=== PATIENT | female | born 1995 | race Caucasian/White ===

== ENCOUNTER → 2018-09-15 10:43 | Outpatient (CLI) | payer OTHER, SELFPAY ==
[2018-09-15 14:20] LABS: Hemoglobin A1c 5.4 % (4.2-6.3)
[2018-09-15 14:48] LABS: Follicle Stimulating Hormone 2.6 mIU/mL; Free T3 3.2 pg/mL (2.18-3.98); Glucose 80 mg/dL (74-106); Luteinizing Hormone 3.1 mIU/mL; T4 Free Direct 0.82 ng/dL (0.76-1.46); Thyroid Stim Hormone (TSH) 1.37 uIU/mL (0.358-3.74)
== END ==
PROVIDERS: Visit Provider Obstetrics & Gynecology
DX: N92.6 Irregular menstruation, unspecified (principal)
CPT/HCPCS: 36415; 82947; 83001; 83002; 83036; 84146; 84439; 84443; 84481

== ENCOUNTER → 2019-08-13 13:20 | Outpatient (CLI) | payer OTHER, SELFPAY ==
[2019-08-13 13:25] LABS: Mucous, Urine 0 SEEN /hpf (<or=2+); Red Blood Cells-Urine 0 SEEN /hpf (0-5); White Blood Cells 0 SEEN /hpf (0-5)
[2019-08-13 14:25] LABS: Color, Urine Yellow (Yellow); Glucose, Dipstick Normal (Normal); Ketone-Dipstick Negative (Negative); Leukocyte Esterase-Dipstick 25 /ul (Negative); Nitrite-Dipstick Negative (Negative); Occult Blood-Urine Negative /ul (Negative); Protein-Dipstick 30 mg/dl (Negative); Urine Bilirubin Dipstick Negative (Negative); Urine Clarity Cloudy (Clear); Urine Urobilinogen Normal (Normal)
[2019-08-13 14:34] LABS: Squamous Epithelial Cells - UA 5-10 SEEN /hpf (5-10)
[2019-08-13 14:36] LABS: Amorphous Sediment 3+; Bacteria RARE /hpf (None Seen)
[2019-08-16 03:06] LABS: HSV 1 By PCR Negative (Negative)
[2019-08-16 10:01] LABS: HSV 2 By PCR Negative (Negative)
== END ==
PROVIDERS: Visit Provider Obstetrics & Gynecology
DX: N39.0 Urinary tract infection, site not specified (principal); N77.1 Vaginitis, vulvitis and vulvovaginitis in diseases classified elsewhere
CPT/HCPCS: 81001; 87086; 87088; 87529

== ENCOUNTER → 2019-09-09 10:45 | Outpatient (CLI) | payer OTHER, SELFPAY ==
--- NOTE | 2019-09-09 10:49 | RAD_ITS ---
EXAM DESCRIPTION: Hysterosalpingogram CLINICAL HISTORY: 24 years Female, infertility COMPARISON: None. TECHNIQUE: The uterus is catheterized by Dr. Rincon and contrast material was injected into the uterine cavity. 54 seconds of fluoroscopy was utilized including 33.91 mGy of dose and 5 fluoroscopic images. FINDINGS: The uterine cavity itself appeared to be normal and contrast material filled the right ovary duct and spill into the peritoneum indicating that the right oviduct is patent. There is total blockage of the left oviduct at the uterine cornua level. RAD/Salpingogram IMPRESSION: 1. There is total blockage of the left oviduct the level of the left uterine cornua. 2. The right oviduct is patent. Electronically Signed: Stuart Ko, at 16:04 EDT Tel , Service support ,
== END ==
PROVIDERS: Family Provider Physician Assistant; PCP Physician Assistant; Referring Provider Obstetrics & Gynecology; Visit Provider Obstetrics & Gynecology
DX: N97.9 Female infertility, unspecified (principal)
CPT/HCPCS: 58340; 74740; Q9967

== ENCOUNTER → 2019-12-20 15:10 | Outpatient (CLI) | payer OTHER, SELFPAY ==
[2019-12-20 16:53] LABS: hCG Titer Quant., Serum 1610 mIU/mL (1-3)
== END ==
PROVIDERS: Visit Provider Obstetrics & Gynecology
DX: N91.2 Amenorrhea, unspecified (principal)
CPT/HCPCS: 36415; 84702

== ENCOUNTER → 2019-12-22 15:01 | Outpatient (CLI) | payer OTHER, SELFPAY ==
[2019-12-22 16:33] LABS: hCG Titer Quant., Serum 3437 mIU/mL (1-3)
== END ==
PROVIDERS: Visit Provider Obstetrics & Gynecology
DX: N91.2 Amenorrhea, unspecified (principal)
CPT/HCPCS: 36415; 84702

== ENCOUNTER → 2020-01-12 | Outpatient (CLI) | payer OTHER, SELFPAY | END | disposition home or self-care (01) | PROVIDERS: Referring Provider Obstetrics & Gynecology; Visit Provider Obstetrics & Gynecology | DX: Z34.81 Encounter for supervision of other normal pregnancy, first trimester (principal); Z12.4 Encounter for screening for malignant neoplasm of cervix; Z11.3 Encounter for screening for infections with a predominantly sexual mode of transmission ==

== ENCOUNTER → 2020-02-09 15:54 | Outpatient (CLI) | payer OTHER, SELFPAY ==
[2020-02-09 18:08] LABS: Absolute Lymphocyte Count 2.17 X10^3/uL (0.83-4.51); Absolute Neutrophil Count 6.7 X10^3/uL (2.0-7.7); Basophil# 0.03 X10^3/uL; Basophil% 0.3 % (0-1); Eosinophil# 0.21 X10^3/uL; Eosinophils% 2.2 % (0-5); Hematocrit 35.8 % (37-47); Hemoglobin 11.7 g/dL (12.0-15.0); Lymphocyte # 2.17 X10^3/ul (4.0); Lymphocyte % 22.3 % (19-41); Mean Corp Hgb Conc 32.7 g/dL (32-36); Mean Corpuscular Hgb 28.5 pg (27.0-32.0); Mean Corpuscular Volume 87.1 fL (81-99); Mean Platelet Vol. 11.9 fl (6.2-12.0); Monocyte# 0.58 X10^3/uL; NRBC Flagged by Analyzer 0 % (0-5); Neutrophil % 68.8 % (47-70); Platelet Count 215 K/mm3 (150-450); RBC Distribution Width CV 13.2 % (11.6-14.6); RBC Distribution Width SD 41.4 fl (35.1-43.9); Red Blood Count 4.11 M/mm3 (4.2-5.4); White Blood Count 9.7 K/mm3 (4.4-11.0)
[2020-02-09 18:37] LABS: Thyroid Stim Hormone (TSH) 1.81 uIU/mL (0.358-3.74)
[2020-02-10 02:10] LABS: Prenatal RPR NONREACTIVE (NONREACTIVE)
[2020-02-10 10:49] LABS: HIV - WCH Non-Reactive (Nonreactive); Hepatitis B Surface Antigen Non-Reactive (Nonreactive); Hepatitis C Antibody Non-Reactive (Nonreactive); Rubella IgG > 500.0 IU/mL
[2020-02-12 08:07] LABS: Vitamin D,25 Hydroxy 30.2 ng/mL
== END ==
PROVIDERS: Visit Provider Obstetrics & Gynecology
DX: Z34.81 Encounter for supervision of other normal pregnancy, first trimester (principal)
CPT/HCPCS: 36415; 80307; 81002; 82306; 84443; 85025; 86703; 86762; 86803; 87340

== ENCOUNTER → 2020-03-08 | Outpatient (CLI) | payer OTHER, SELFPAY ==
[2020-03-08 18:39] LABS: Glucose Challenge Gest 1H 50g 102 mg/dL (70-140)
== END | disposition home or self-care (01) ==
PROVIDERS: Referring Provider Obstetrics & Gynecology; Visit Provider Obstetrics & Gynecology
DX: Z34.82 Encounter for supervision of other normal pregnancy, second trimester (principal)
CPT/HCPCS: 82950

== ENCOUNTER → 2020-04-12 16:34 | Outpatient (CLI) | payer OTHER, SELFPAY ==
[2020-04-12 17:07] LABS: Color, Urine Yellow (Yellow); Glucose, Dipstick Normal (Normal); Ketone-Dipstick 15 mg/dl (Negative); Leukocyte Esterase-Dipstick Negative /ul (Negative); Nitrite-Dipstick Negative (Negative); Occult Blood-Urine Negative /ul (Negative); Protein-Dipstick Negative (Negative); Urine Bilirubin Dipstick Negative (Negative); Urine Clarity Clear (Clear); Urine Urobilinogen Normal (Normal)
[2020-04-12 17:23] LABS: Amphetamine Urine VISTA NEGATIVE (<1000 ng/mL); Barbiturate Urine VISTA NEGATIVE (< 200 ng/mL); Benzodiazepine Urine VISTA NEGATIVE (< 200 ng/mL); Cocaine Urine VISTA NEGATIVE (< 300 ng/mL); Ecstacy Urine VISTA NEGATIVE (< 500 ng/mL); Methadone Urine VISTA NEGATIVE (< 300 ng/mL); PCP Urine VISTA NEGATIVE (< 25 ng/mL); THC Urine VISTA NEGATIVE (< 50 ng/mL); Vista UDS pH Range 8
[2020-04-12 17:37] LABS: ALB/GLOB Ratio 0.8 RATIO (0.9-2.4); AST(SGOT) 12 U/L (15-37); Alanine Aminotransfer ALT/SGPT 19 U/L (13-56); Albumin, Serum 3.1 g/dL (3.2-5.0); Alkaline Phosphatase 88 U/L (45-117); Anion Gap 8 (5-15); BUN 4 mg/dL (7-18); BUN/Creat Ratio 7.3 RATIO (10-20); Calcium,Total 9.1 mg/dL (8.5-10.1); Chloride 104 mmol/L (98-107); Creatinine, Serum 0.55 mg/dL (0.55-1.02); EST Glomerular Filtration Rate 142 mL/min (>60); Est Glom Filt Rate - Afr Amer 172 mL/min (>60); Globulin 3.8 g/dL (2.2-4.2); Glucose 75 mg/dL (74-106); Potassium 3.8 mmol/L (3.5-5.1); Protein, Total 6.9 g/dL (6.4-8.2); Sodium Level 137 mmol/L (136-145)
== END ==
PROVIDERS: Referring Provider Obstetrics & Gynecology; Visit Provider Obstetrics & Gynecology
DX: Z34.82 Encounter for supervision of other normal pregnancy, second trimester (principal); R11.2 Nausea with vomiting, unspecified
CPT/HCPCS: 36415; 80053; 80307; 81002

== ENCOUNTER → 2020-05-17 15:00 | Outpatient (CLI) | payer OTHER, SELFPAY ==
[2020-05-17 15:46] LABS: Hematocrit 33.2 % (37-47); Hemoglobin 10.7 g/dL (12.0-15.0); Mean Corp Hgb Conc 32.2 g/dL (32-36); Mean Corpuscular Hgb 29.1 pg (27.0-32.0); Mean Corpuscular Volume 90.2 fL (81-99); Mean Platelet Vol. 11.2 fl (6.2-12.0); Platelet Count 229 K/mm3 (150-450); RBC Distribution Width CV 13.6 % (11.6-14.6); RBC Distribution Width SD 44.9 fl (35.1-43.9); Red Blood Count 3.68 M/mm3 (4.2-5.4); White Blood Count 11.1 K/mm3 (4.4-11.0)
[2020-05-17 16:03] LABS: Glucose Challenge Gest 1H 50g 120 mg/dL (70-140)
== END ==
PROVIDERS: Visit Provider Obstetrics & Gynecology
DX: Z34.82 Encounter for supervision of other normal pregnancy, second trimester (principal)
CPT/HCPCS: 36415; 82950; 85027

== ENCOUNTER → 2020-07-28 | Outpatient (CLI) | payer OTHER, SELFPAY | END | disposition home or self-care (01) | PROVIDERS: Visit Provider Obstetrics & Gynecology | DX: Z36.85 Encounter for antenatal screening for Streptococcus B (principal) | CPT/HCPCS: 87081 ==

== ENCOUNTER 2020-08-04 15:55 | Outpatient (CLI) | payer OTHER, SELFPAY ==
[2020-08-04] VITALS (9 sets, daily range): BP systolic 117–134; BP diastolic 68–88; PULSE 87–121; TEMP 36.9; BMI 36.5
[2020-08-04 16:56] LABS: Hematocrit 35.2 % (37-47); Hemoglobin 11.5 g/dL (12.0-15.0); Mean Corp Hgb Conc 32.7 g/dL (32-36); Mean Corpuscular Hgb 28.3 pg (27.0-32.0); Mean Corpuscular Volume 86.7 fL (81-99); Mean Platelet Vol. 11.8 fl (6.2-12.0); Platelet Count 186 K/mm3 (150-450); RBC Distribution Width CV 14.6 % (11.6-14.6); RBC Distribution Width SD 45.6 fl (35.1-43.9); Red Blood Count 4.06 M/mm3 (4.2-5.4); White Blood Count 11.1 K/mm3 (4.4-11.0)
[2020-08-04 17:19] LABS: Microalbumin,Random Urine 77.7 mg/L (NO RANGE EST.)
[2020-08-04 17:27] LABS: ALB/GLOB Ratio 0.7 RATIO (0.9-2.4); AST(SGOT) 15 U/L (15-37); Alanine Aminotransfer ALT/SGPT 18 U/L (13-56); Albumin, Serum 2.7 g/dL (3.2-5.0); Alkaline Phosphatase 160 U/L (45-117); Anion Gap 8 (5-15); BUN 7 mg/dL (7-18); BUN/Creat Ratio 11.5 RATIO (10-20); Calcium,Total 8.9 mg/dL (8.5-10.1); Chloride 107 mmol/L (98-107); Creatinine, Serum 0.61 mg/dL (0.55-1.02); EST Glomerular Filtration Rate 125 mL/min (>60); Est Glom Filt Rate - Afr Amer 151 mL/min (>60); Globulin 3.9 g/dL (2.2-4.2); Glucose 97 mg/dL (74-106); Potassium 3.6 mmol/L (3.5-5.1); Protein, Total 6.6 g/dL (6.4-8.2); Sodium Level 137 mmol/L (136-145); Uric Acid 6.4 mg/dL (2.6-6.0)
--- NOTE | 2020-08-30 22:26 | OB.TRI.NOTE ---
- Problem List (1) Gestational hypertension Status: Acute Qualifiers: Trimester: third trimester History of Present Illness Date of Service: 08/04/20 Was patient seen by the physician?: No Reason For Visit: ELEVATED BLOOD PRESSURE Final NOY: 08/24/20 Final NOY Source: US <20 weeks Gestational age: 37 Weeks and 1 Days History of Present Illness: 25yo G1 @ 37 1/7wga sent from office with elevated BPs. Initial BP 164/104, 142/110. Denies headache, vision changes. Allergies No Known Allergies Allergy (Verified 08/04/20 17:35) Laboratory Studies: Laboratory Tests 08/04/20 08/04/20 08/04/20 Range/Units 16:40 16:40 16:40 WBC 11.1 H (4.4-11.0) K/mm3 RBC 4.06 L (4.2-5.4) M/mm3 Hgb 11.5 L (12.0-15.0) g/dL Hct 35.2 L (37-47) % MCV 86.7 (81-99) fL MCH 28.3 (27.0-32.0) pg MCHC 32.7 (32-36) g/dL RDW Std Deviation 45.6 H (35.1-43.9) fl RDW Coeff of Lynnette 14.6 (11.6-14.6) % Plt Count 186 (150-450) K/mm3 MPV 11.8 (6.2-12.0) fl Sodium 137 (136-145) mmol/L Potassium 3.6 (3.5-5.1) mmol/L Chloride 107 (98-107) mmol/L Carbon Dioxide 22.0 (21.0-32.0) mmol/L Anion Gap 8 (5-15) BUN 7 (7-18) mg/dL Creatinine 0.61 (0.55-1.02) mg/dL Est GFR (MDRD) Af Amer 151 (>60) mL/min Est GFR (MDRD) Non-Af 125 (>60) mL/min BUN/Creatinine Ratio 11.5 (10-20) RATIO Glucose 97 (74-106) mg/dL Uric Acid 6.4 H (2.6-6.0) mg/dL Calcium 8.9 (8.5-10.1) mg/dL Total Bilirubin 0.20 (0.20-1.00) mg/dL AST 15 (15-37) U/L ALT 18 (13-56) U/L Alkaline Phosphatase 160 H (45-117) U/L Total Protein 6.6 (6.4-8.2) g/dL Albumin 2.7 L (3.2-5.0) g/dL Globulin 3.9 (2.2-4.2) g/dL Albumin/Globulin Ratio 0.7 L (0.9-2.4) RATIO Ur Random Microalbumin 77.7 (NO RANGE EST.) mg/L Urine Creatinine 52.50 (NO RANGE EST.) mg/dL Microalb/Creat Ratio 148.0 H (<30 mg/g CRE) mg/g CRE Physical Exam Vitals: Vital Signs Temp Pulse BP 98.5 F 88 133/70 H 08/04/20 16:21 08/04/20 17:45 08/04/20 17:45 NST - FHR Rate Baby A FHR Category:: Category I Uterine Activity:: 0/10 Impression/Plan 25yo G1 @ 37 1/7wga Dx gestational hypertension Reactive NST Preeclamptic labs reviewed and wnl D/C home
== END 2020-08-04 18:00 | disposition home or self-care (01) ==
LOC: WPOUT 16:01 → WP 16:01
PROVIDERS: Referring Provider Obstetrics & Gynecology; Visit Provider Obstetrics & Gynecology
DX: O13.3 Gestational [pregnancy-induced] hypertension without significant proteinuria, third trimester (principal); Z3A.37 37 weeks gestation of pregnancy
CPT/HCPCS: 36415; 59025; 59050; 80053; 82043; 82570; 84550; 85027; 99218; G0378

== ENCOUNTER → 2020-08-08 09:03 | Outpatient (CLI) | payer OTHER, SELFPAY ==
[2020-08-04 16:03] VITALS: BMI 36.5
[2020-08-08 10:56] LABS: Hematocrit 38.5 % (37-47); Hemoglobin 12.4 g/dL (12.0-15.0); Mean Corp Hgb Conc 32.2 g/dL (32-36); Mean Corpuscular Hgb 28.4 pg (27.0-32.0); Mean Corpuscular Volume 88.1 fL (81-99); Mean Platelet Vol. 12.2 fl (6.2-12.0); Platelet Count 189 K/mm3 (150-450); RBC Distribution Width CV 14.7 % (11.6-14.6); RBC Distribution Width SD 46.8 fl (35.1-43.9); Red Blood Count 4.37 M/mm3 (4.2-5.4); White Blood Count 12.1 K/mm3 (4.4-11.0)
[2020-08-08 11:50] LABS: ALB/GLOB Ratio 0.7 RATIO (0.9-2.4); AST(SGOT) 16 U/L (15-37); Alanine Aminotransfer ALT/SGPT 11 U/L (13-56); Albumin, Serum 2.8 g/dL (3.2-5.0); Alkaline Phosphatase 163 U/L (45-117); Anion Gap 6 (5-15); BUN 6 mg/dL (7-18); BUN/Creat Ratio 9.5 RATIO (10-20); Calcium,Total 10.1 mg/dL (8.5-10.1); Chloride 106 mmol/L (98-107); Creatinine, Serum 0.63 mg/dL (0.55-1.02); EST Glomerular Filtration Rate 119 mL/min (>60); Est Glom Filt Rate - Afr Amer 145 mL/min (>60); Glucose 86 mg/dL (74-106); Potassium 3.9 mmol/L (3.5-5.1); Protein, Total 6.8 g/dL (6.4-8.2); Sodium Level 137 mmol/L (136-145)
== END ==
PROVIDERS: Visit Provider Obstetrics & Gynecology
DX: O13.3 Gestational [pregnancy-induced] hypertension without significant proteinuria, third trimester (principal); Z3A.00 Weeks of gestation of pregnancy not specified
CPT/HCPCS: 36415; 80053; 84550; 85027

== ENCOUNTER 2020-08-10 19:03 | Inpatient (IN) | payer OTHER, SELFPAY ==
[2020-08-04 16:03] VITALS: BMI 36.5
[2020-08-10 19:13] VITALS: BP 139/75; PULSE 104; TEMP 36.1
[2020-08-10 19:14] VITALS: PULSE 102; O2SAT 100
[2020-08-10 19:16] VITALS: BMI 37.7
[2020-08-10 19:19] VITALS: PULSE 107; O2SAT 99
[2020-08-10] MEDS: 0.9% Saline Lock 10 ML Syringe IV ×2 (19:32→23:09)
[2020-08-10 19:33] VITALS: PULSE 142; O2SAT 80
[2020-08-10 20:13] LABS: Absolute Lymphocyte Count 2.48 X10^3/uL (0.83-4.51); Absolute Neutrophil Count 7.2 X10^3/uL (2.0-7.7); Basophil# 0.02 X10^3/uL; Basophil% 0.2 % (0-1); Eosinophil# 0.15 X10^3/uL; Eosinophils% 1.4 % (0-5); Hematocrit 33.6 % (37-47); Hemoglobin 10.8 g/dL (12.0-15.0); Lymphocyte # 2.48 X10^3/ul (4.0); Lymphocyte % 22.7 % (19-41); Mean Corp Hgb Conc 32.1 g/dL (32-36); Mean Corpuscular Hgb 28.1 pg (27.0-32.0); Mean Corpuscular Volume 87.3 fL (81-99); Mean Platelet Vol. 11.8 fl (6.2-12.0); Monocyte# 0.88 X10^3/uL; Monocyte% 8.1 % (0-10); NRBC Flagged by Analyzer 0 % (0-5); Neutrophil # 7.21 X10^3/uL (2.7-7.7); Platelet Count 186 K/mm3 (150-450); RBC Distribution Width CV 14.6 % (11.6-14.6); RBC Distribution Width SD 46.4 fl (35.1-43.9); Red Blood Count 3.85 M/mm3 (4.2-5.4); White Blood Count 10.9 K/mm3 (4.4-11.0)
[2020-08-10 21:08] VITALS: BP 135/89; PULSE 100
[2020-08-10 21:09] VITALS: TEMP 36.1; O2SAT 100
[2020-08-10] MEDS: miSOPROStol 25 MCG TABLET VAGINAL (21:11)
--- NOTE | 2020-08-10 22:20 | HP.PCM_ITS ---
<Marcia Ortega - Last Filed: 08/11/20 02:50> - Problem List (1) 38 weeks gestation of Status: Acute (2) Gestational hypertension Status: Acute Qualifiers: Trimester: third trimester Qualified Code(s): O13.3 - Gestational [-induced] hypertension without significant proteinuria, third trimester History Date of Admission: 08/11/20 Final NOY: 08/24/20 Final NOY Source: US <20 weeks Gestational age: 38 Weeks and 1 Days History of this : This is a 25 year-old, G [1], P [0], at 38 weeks gestational age. Allergies No Known Allergies Allergy (Verified 08/04/20 17:35) Home Medications: Home Medications Diphenhydramine HCl [Unisom] 50 mg PO QHS 08/04/20 Famotidine [Pepcid] 20 mg PO DAILY 08/04/20 Ferrous Sulfate [Iron] 325 mg PO DAILY 08/04/20 Vits [Prenatabs FA] 1 tab PO DAILY 08/04/20 Aspirin, Baby 81 mg PO DAILY 08/10/20 Calcium Carbonate/Vitamin D3 [Calcium 250+D Tablet] 1 ea PO DAILY 08/10/20 Krill/Om-3/Dha/Epa/Phospho/Ast [Krill Oil 1,000 mg Softgel] 1 ea PO 08/10/20 Smoking Status: Former smoker Alcohol: None Number of Fetus(es): 1 NST - FHR Rate Baby A Baseline: 135 Variability:: Moderate Accelerations:: 15 x 15 Decelerations:: None NST Reactive:: Yes FHR Category:: Category I Uterine Activity:: quiet History Past Pregnancies: Past Pregnancies: None Labs: Mom's Labs & Results 08/10/20 08/10/20 08/10/20 19:35 19:35 21:00 WBC 10.9 RBC 3.85 L Hgb 10.8 L Hct 33.6 L MCV 87.3 MCH 28.1 MCHC 32.1 RDW Std Deviation 46.4 H RDW Coeff of Lynnette 14.6 Plt Count 186 MPV 11.8 Immature Gran % (Auto) 1.600 H Neut % (Auto) 66.0 Lymph % (Auto) 22.7 Elliott % (Auto) 8.1 Eos % (Auto) 1.4 Baso % (Auto) 0.2 Absolute Neuts (auto) 7.2 Absolute Lymphs (auto) 2.48 Nucleated RBC % 0 Chlam trachomat DNA PCR Negative N.gonorrhoeae DNA (PCR) Negative Blood Type B POSITIVE Antibody Screen NEGATIVE Course Did the patient receive Yes care? Labs Blood Type: B RH: POSITIVE RPR/VDRL/Syphilis Nonreactive Rubella status Immune HbSAg Negative Date Done: 02/09/20 Chlamydia Negative Gonorrhea Negative HIV/AIDS Non-Reactive Group B Strep: Negative Current Obstetrical History Gestational Diabetes No Incompetent Cervix No Infertility Yes: clomid and another medication IUGR No Macrosomia No Hypertension/Pre-eclampsia Yes: labs wnl Placenta Previa/Abruption No PTL/PROM No Uterine anomaly No Oligohydramnios No Polyhydramnios No Multiple gestation No Past Medical History Asthma No Diabetes No Hypertension No Heart disease No Mitral valve prolapse No Neurologic/Seizure disorder/ No Migraines Kidney disease No Liver disease No Varicosities No Clotting disorders/Hx of DVT No Thyroid Dysfunction No Other medical diseases Yes: PCOS Psychiatric disorders No Major trauma No Abnormal PAP smear No Sleep apnea No Mammogram in the last 2 years No Medications Taken During Last Date/Time of Medication May Taken: [antibiotic eye drops] Last Date/Time of Medication second trimester Taken: [b6] Last Date/Time of Medication second trimester Taken: [zofran] Last Date/Time of Medication second trimester Taken: [promethazine] Reason for taking medication [ scratched eye taking out contacts, cannot recall antibiotic eye drops] name of med but states it's the only one allowed for pregnancies Reason for taking medication [ nausea b6] Reason for taking medication [ nausea zofran] Reason for taking medication [ nausea promethazine] Social History Marital Status: Alleged father Shilo Teresa Hx Smoking No Smoking Status Former smoker How long have you used n/a substances (years)? Expected Delivery Method: Spontaneous Vaginal Number of Visits: 11 Review of Systems Constitutional: Denies: Chills, Fever, Weight Change HEENT: Denies: Head Aches, Sinus Congestion, Sinus Drainage Cardiovascular: Denies: Chest Pain, Palpitations Respiratory: Denies: Cough, Shortness of breath at rest, Sputum production Gastrointestinal: Denies: Abdominal Pain, Nausea, Vomiting Genitourinary: Denies: Dysuria Musculoskeletal: Denies: Joint Pain, Joint Tenderness Skin: Denies: Rash, Wounds Neurological: Denies: Numbness, Tingling, Focal weakness Psychiatric: Denies: Anxiety, Depression, Homicidal Ideations, Suicidal Ideations Hematologic/ Lymphatic: Denies: Easy Bruising, Easy Bleeding Physical Exam Vitals: Vital Signs Temp Pulse BP Pulse Ox 97.3 F L 96 130/71 H 100 08/11/20 01:24 08/11/20 01:24 08/11/20 01:24 08/11/20 01:24 General: Alert, Oriented x3, No apparent distress HEENT: Atraumatic, Normocephalic. Negative for: Thyromegaly, Lymphadenopathy Cardiovascular: Regular rate, Regular Rhythm Lungs: Clear to auscultation Abdomen: Bowel Sounds Present, Gravid Neurological: Deep Tendon Reflexes 2+/4 and Symmetrical, Neuro grossly intact [employer] INST[employer]ER: Normal external genitalia. Negative for: Vulvar lesions Estimated gestational size: Appropriate for gestational size Presentation: Cephalic Cervix Dilation (cm): 1.5 Station: -3 Effacement (%): 50 Assessment/Plan All Active Problems 38 weeks gestation of (Acute) Gestational hypertension (Acute) A/P: This is a 25 year-old, G [1], P [0], at 38 weeks gestational age. SVE 1.5/50/-3 NST category I Plan IOL with Cytotec for gestational hypertension Continuous monitoring until IOL can start BP range 130s/70-90s, denies headache, vision changes or RUQ pain Expect <Giovanni Lambert - Last Filed: 08/11/20 07:31> History History of this : This is a 25 year-old, G [], P [], at 38 weeks gestational age. Allergies No Known Allergies Allergy (Verified 08/04/20 17:35) History Past Pregnancies: Past Pregnancies Delivery Date Name GA/ Weeks Outcome Route Wt Infant Sex Labor Length Anesthesia Delivery Location Provider FOB Physical Exam Vitals: Vital Signs Temp Pulse BP Pulse Ox 97.5 F L 94 138/101 H 98 08/11/20 05:23 08/11/20 07:28 08/11/20 07:28 08/11/20 05:23 Assessment/Plan This is a 25 year-old, G [1], P [0], at 38 weeks gestational age for IOL with gHTN. Cytotec induction
[2020-08-10 22:53] LABS: Chlamydia Trachomatis by PCR Negative (Negative); Neisserai gonorrhoeae by PCR Negative (Negative); Probe Check PASS; Sample Adequacy Control PASS; Specimen Processing Control PASS
[2020-08-10] MEDS: Lactated Ringers 500 ML 999 ML IV (23:12)
[2020-08-10] MEDS: Lactated Ringers 1,000 ML 50 ML IV (23:43)
[2020-08-11] VITALS (43 sets, daily range): BP systolic 90–143; BP diastolic 51–101; PULSE 87–141; TEMP 36.2–37.8; O2SAT 98–100
[2020-08-11] MEDS: 0.9% Saline Lock 10 ML Syringe IV ×3 (00:09→17:25)
[2020-08-11] MEDS: miSOPROStol 25 MCG TABLET VAGINAL ×2 (01:26→05:19)
[2020-08-11] MEDS: Acetaminophen 325 MG Tablet PO ×2 (03:53→19:46)
--- NOTE | 2020-08-11 09:45 | PCM.PN.BLA ---
Progress Note LABOR PROGRESS NOTE contractions are mild to moderately painful. AVSS GEN - NAD, AAO x 3 FHR 135, moderate variability, + accelerations, n o decelerations TOCO 2/10 min SVE 3/60/-3, moderate and midposition A/P: 25yo G1 @ 38 1/7wga, IOL for gHTN, CAt I FHR -Membranes stripped -Continue pitocin as tolerated by mother and fetus STROKE Vital Signs/Narrative: Vital Signs Temp Pulse BP Pulse Ox 08/11/20 14:04 87 100 08/11/20 14:00 93 138/80 H 08/11/20 13:59 100 08/11/20 13:54 107 H 100 08/11/20 12:45 97.7 F L 88 133/85 H 100 08/11/20 11:48 97.9 F 88 134/85 H 98 08/11/20 10:33 97.5 F L 08/11/20 10:32 110 H 138/94 H
[2020-08-11] MEDS: Oxytocin 30 units/NS 500 ml 30 UNITS/500 ML IV.SOLN IV (10:27)
[2020-08-11] MEDS: Lactated Ringers 500 ML 999 ML IV ×2 (13:23→21:40)
--- NOTE | 2020-08-11 14:03 | PCM.PN.BLA ---
Progress Note LABOR PROGRESS NOTE C/O painful contractions. She is ready for the epidural. AVSS GEN - NAD, AAO x 3 [id number], moderate variability, + accelerations, no decelerations TOCO 3/10 min SVE 4.5/75/-3, soft and midposition A/P: 25yo G1 @ 38 1/7 weeks gestation, IOL for gHTN, Cat I FHR -Continue pitocin was tolerated by mother and fetus -Maternal and statuses reassuring -Epidural per patient request STROKE Vital Signs/Narrative: Vital Signs Temp Pulse BP Pulse Ox 08/11/20 14:00 93 138/80 H 08/11/20 13:59 100 08/11/20 13:54 107 H 100 08/11/20 12:45 97.7 F L 88 133/85 H 100 08/11/20 11:48 97.9 F 88 134/85 H 98 08/11/20 10:33 97.5 F L 08/11/20 10:32 110 H 138/94 H
[2020-08-11] MEDS: fentaNYL-bupivacaine (epidural) 100 ML BAG EPIDURAL ×3 (14:08→23:32)
[2020-08-11] MEDS: Ondansetron 4 MG/2 ML Vial IV ×2 (17:25→23:22)
[2020-08-11] MEDS: Lactated Ringers 1,000 ML 200 ML IV ×2 (18:02→23:31)
--- NOTE | 2020-08-11 19:30 | PCM.PN.OB ---
Patient Problems: Active and Suspected Problems 38 weeks gestation of (Acute) Gestational hypertension (Acute) Subjective: Feeling well and denies any pain with epidural in place. States she is tired and ready, but overall doing well. Objective: VSS. FHR baseline 150, + accels, - decels, moderate variability. UC Q2-4m. - Physical Exam Vitals/I&O's: Vital Signs Temp Pulse BP Pulse Ox 101.7 F H 126 H 121/58 H 100 08/12/20 02:16 08/12/20 02:35 08/12/20 02:35 08/12/20 00:01 Weight: 93.553 kg Body Mass Index (BMI) 37.7 Intake and Output for Last 24 Hours 08/10/20 08/11/20 08/12/20 23:59 23:59 23:59 Intake Total 500 / 500 3082.37 / 3082.37 Output Total 600 / 600 Balance 500 / 500 2482.37 / 2482.37 General: Alert, Oriented x3, Cooperative HEENT: Atraumatic, PERRLA, EOMI, Normocephalic Neck: Supple, No JVD, Negative Carotid Bruits Lungs: Clear to auscultation, Normal air movement Cardiovascular: Regular rate, No murmurs Abdomen: Bowel Sounds Present, Soft, Non Tender Extremities: No edema, Capillary Refill Less than 3 Seconds Skin: No rashes, No breakdown Musculoskeletal: No Tenderness to Palpation of Joints or Extremities Neurological: Cranial nerves II-XII grossly intact Psych/Mental Status: Normal Affect, Appropriate Current Medications Acetaminophen (Tylenol) 325 - 650 mg PO Q4H PRN PRN PRN Reason: Pain Score 1-3/10 Last Admin: 08/11/20 19:46 Dose: 650 mg Documented by: Al Hydroxide/Mg Hydroxide (Mylanta Ii) 15 - 30 ml PO Q4H PRN PRN PRN Reason: INDIGESTION Citric Acid/Sodium Citrate (Bicitra) 30 ml PO X1 PRN PRN Reason: Section Ephedrine Sulfate () 10 mg IV Q10M PRN PRN Reason: hypotension Ephedrine Sulfate () 10 mg IM Q30M PRN PRN Reason: hypotension Fentanyl Citrate (Sublimaze (100mcg Ampule)) 25 - 50 mcg IV Q2H PRN PRN PRN Reason: Pain Score 4-10/10 Fentanyl/Bupivacaine/Sodium Chlor () 0 ml EPIDURAL UD KAYLYNN; Protocol Last Admin: 08/11/20 23:32 Dose: 100 ml Documented by: Lactated Ringer's () 500 mls @ 999 mls/hr IV .Q31M PRN PRN Reason: Epidural Last Infusion: 08/11/20 13:55 Dose: Infused Documented by: Lactated Ringer's () 500 mls @ 999 mls/hr IV .Q31M PRN PRN Reason: Corrective Measures Last Infusion: 08/11/20 22:11 Dose: Infused Documented by: Lactated Ringer's () 1,000 mls @ 50 mls/hr IV .Q20H KAYLYNN Last Admin: 08/11/20 23:31 Dose: 200 mls/hr Documented by: Oxytocin/Sodium Chloride () 30 units in 500 mls @ 2 mls/hr IV .Q250H KAYLYNN Last Infusion: 08/11/20 21:18 Dose: 14 mls/hr Documented by: Naloxone HCl 4 mg/ Dextrose 504 mls @ 0 mls/hr IV .Q0M PRN; Protocol PRN Reason: To maintain Resp. rate >10 Cefazolin Sodium 2 gm/ Sodium (Chloride) 110 mls @ 150 mls/hr IV X1 ONE Stop: 08/12/20 03:01 Nalbuphine HCl (Nubain) 5 mg IV Q3H PRN PRN PRN Reason: ITCHING Naloxone HCl (Narcan) 0.02 mg IV Q1M PRN PRN Reason: RR< 10 AND PT UNRESPONSIVE Ondansetron HCl (Zofran) 4 mg IV Q4H PRN PRN PRN Reason: NAUSEA Last Admin: 08/11/20 23:22 Dose: 4 mg Documented by: Prochlorperazine Edisylate (Compazine Iv) 10 mg IV Q6H PRN PRN PRN Reason: NAUSEA Last Admin: 08/11/20 23:59 Dose: 10 mg Documented by: Sodium Chloride () 10 - 40 ml IV X1 PRN PRN Reason: SALINE FLUSH Last Admin: 08/11/20 17:25 Dose: 10 ml Documented by: Medical Necessity - Tobacco Use Smoking Status: Former smoker Assessment/Plan All Active Problems 38 weeks gestation of (Acute) Gestational hypertension (Acute) A/P: IOL for gestational HTN NST Category I UC Q2-4m Active labor with Pitocin infusing Epidural in place for effective pain management SVE /-1 Expect
[2020-08-11] MEDS: proCHLORPERazine 10 MG/2 ML Vial IV (23:59)
[2020-08-12] VITALS (20 sets, daily range): BP systolic 104–141; BP diastolic 56–83; PULSE 100–145; RESP 16–18; TEMP 36.4–38.7; O2SAT 99–100
[2020-08-12] MEDS: Oxytocin 30 units/NS 500 ml 30 UNITS/500 ML IV.SOLN 334 UNITS IV (01:59)
--- NOTE | 2020-08-12 02:20 | PCM.OPRPT ---
Problem List (1) 38 weeks gestation of Status: Acute (2) Gestational hypertension Status: Acute Qualifiers: Trimester: third trimester Qualified Code(s): O13.3 - Gestational [-induced] hypertension without significant proteinuria, third trimester Vaginal Delivery Maternal Presentation: Medically Indicated Induction Method of Induction: Cytotec Medical Reason for Induction: Gestational Hypertension Amniotic Membrane Rupture Type: Artificial Rupture of Membrane time: 1632 Amniotic Fluid Description: Clear Final NOY: 08/24/20 Final NOY Source: US <20 weeks Gestational age: 38 Weeks and 2 Days Date of Procedure: 08/12/20 Pre-Operative Diagnosis: IOL for maternal gestational hypertension Post-Operative Diagnosis: S/P Yovana Surgery/ Procedure Performed: Spontaneous Vaginal Delivery Type of Anesthesia: Epidural Description of Procedure: Patient was complete, +2 station when pushing began. She pushed well to deliver head in OA to MAIRA followed spontaneously by infants body. The female infant was placed on the maternal abdomen and further attended to by nursery personnel. The cord was doubly clamped and cut by FOB under CNM supervision at approximately 5 minutes of life. First degree vaginal floor extension laceration with no repair needed and intact perineum. With gentle traction the placenta delivered. IV Pitocin started per protocol. On inspection placenta appears intact with a three vessel cord. Apgars 8/9. EBL 300. Sponge count correct x 2. Attending: Dr. Yun Presentation: Vertex, MAIRA Placental Delivery Description: Spontaneous Placenta Disposition: [facility] Cord Vessel Description: 3 Vessels Cord Entanglement: None Drain: Yan to straight drain Estimated Blood Loss: 250 A gender: Female (1 minute): 8 (5 minute): 9 Episiotomy Description: None Laceration: 1st degree - vaginal floor Medications given after delivery: IV Pitocin
--- NOTE | 2020-08-12 02:33 | DCINST_ITS ---
Discharge Diet: No Restrictions Discharge Activity: Return to Normal Activity, May not drive while taking narcotic pain medications., May Shower May resume sexual activity in: 4-6 weeks Additional Activity Instructions:: Nothing in the vagina for 4-6 weeks. You may return to work/school in 6 weeks. Call your doctor if your incision/area has: Continuous Slow Oozing, Sudden Increased Bleeding, Increased Pain/ Swelling, Increased Redness, Foul Smelling Discharge Additional Instructions: If you experience any of the following, contact your healthcare provider. * Bleeding that soaks a pad every hour for 2 hours * Fever 100.4 or higher * Unrelieved incision or abdominal pain * Swelling, redness, discharge or bleeding from your incision or episiotomy site * Your incision begins to separate * Problems urinating (including inability to urinate or burning while urinating). * Visual changes * Severe headache * Flu-like symptoms * Pain or redness in one of both of your breasts * Pain, warmth, tenderness or swelling in your legs, especially the calf area * Frequent nausea and vomiting * Symptoms of depression or anxiety If you experience any of the following, call 911 or go to the nearest Emergency Room. * Chest pain * Problems breathing * Seizure activity * Partial or complete paralysis of a body part, slurred speech, weakness or drooping of the face, or a sudden inability to walk or hold your balance Allergies/Adverse Reactions: Allergies No Known Allergies Allergy (Verified 08/04/20 17:35) Medications to take at Discharge Diphenhydramine HCl [Unisom] 50 mg PO QHS 08/04/20 Famotidine [Pepcid] 20 mg PO DAILY 08/04/20 Ferrous Sulfate [Iron] 325 mg PO DAILY 08/04/20 Vits [Prenatabs FA] 1 tab PO DAILY 08/04/20 Aspirin, Baby 81 mg PO DAILY 08/10/20 Calcium Carbonate/Vitamin D3 [Calcium 250+D Tablet] 1 ea PO DAILY 08/10/20 Krill/Om-3/Dha/Epa/Phospho/Ast [Krill Oil 1,000 mg Softgel] 1 ea PO 08/10/20 Please Follow Up With: Viktoria Damon MD When: Call to make an appointment with your doctor in 6 weeks. Test Results: Test results from this visit will be discussed in further detail at your follow- up appointment, if applicable.
[2020-08-12] MEDS: 0.9% Saline Lock 10 ML Syringe IV ×3 (02:45→17:18)
[2020-08-12] MEDS: Cefazolin 2 GM in 0.9% Normal Saline 100 ML IV (02:51)
[2020-08-12 02:55] LABS: Hematocrit 30.9 % (37-47); Hemoglobin 10.1 g/dL (12.0-15.0); Mean Corp Hgb Conc 32.7 g/dL (32-36); Mean Corpuscular Hgb 28.1 pg (27.0-32.0); Mean Corpuscular Volume 85.8 fL (81-99); Mean Platelet Vol. 11.1 fl (6.2-12.0); Platelet Count 151 K/mm3 (150-450); RBC Distribution Width CV 14.6 % (11.6-14.6); RBC Distribution Width SD 45.6 fl (35.1-43.9); White Blood Count 15.9 K/mm3 (4.4-11.0)
[2020-08-12] MEDS: Acetaminophen 500 MG Tablet 1000 MG PO (02:58)
[2020-08-12 14:06] LABS: Hematocrit 28.8 % (37-47); Hemoglobin 9.5 g/dL (12.0-15.0); Mean Corpuscular Hgb 28.4 pg (27.0-32.0); Mean Platelet Vol. 11.6 fl (6.2-12.0); Platelet Count 177 K/mm3 (150-450); RBC Distribution Width CV 14.7 % (11.6-14.6); RBC Distribution Width SD 45.2 fl (35.1-43.9); Red Blood Count 3.35 M/mm3 (4.2-5.4); White Blood Count 25.8 K/mm3 (4.4-11.0)
[2020-08-13] VITALS: BP 132/78; PULSE 104; RESP 16; TEMP 36.7
[2020-08-13 03:40] VITALS: BP 124/69; PULSE 89; RESP 16; TEMP 37
[2020-08-13 04:07] LABS: Absolute Lymphocyte Count 3.17 X10^3/uL (0.83-4.51); Absolute Neutrophil Count 16.1 X10^3/uL (2.0-7.7); Basophil# 0.06 X10^3/uL; Basophil% 0.3 % (0-1); Eosinophil# 0.29 X10^3/uL; Eosinophils% 1.4 % (0-5); Hematocrit 29.9 % (37-47); Hemoglobin 9.8 g/dL (12.0-15.0); Lymphocyte # 3.17 X10^3/ul (4.0); Lymphocyte % 14.9 % (19-41); Mean Corp Hgb Conc 32.8 g/dL (32-36); Mean Corpuscular Hgb 28.2 pg (27.0-32.0); Mean Corpuscular Volume 86.2 fL (81-99); Mean Platelet Vol. 11.3 fl (6.2-12.0); Monocyte# 1.44 X10^3/uL; Monocyte% 6.8 % (0-10); NRBC Flagged by Analyzer 0 % (0-5); Neutrophil # 16.07 X10^3/uL (2.7-7.7); Neutrophil % 75.7 % (47-70); Platelet Count 177 K/mm3 (150-450); RBC Distribution Width SD 46.5 fl (35.1-43.9); Red Blood Count 3.47 M/mm3 (4.2-5.4); White Blood Count 21.2 K/mm3 (4.4-11.0)
[2020-08-13 08:30] VITALS: BP 133/86; PULSE 80; RESP 14; TEMP 36.9
--- NOTE | 2020-08-13 10:19 | PCM.PN.OB ---
Patient Problems: Active and Suspected Problems 38 weeks gestation of (Acute) Gestational hypertension (Acute) Subjective: Patient without complaints. Minimal vaginal bleeding. No fevers and white count decreasing. Denies any fundal tenderness and actually feeling very well. Breast-feeding going well. Wants to go home. - Physical Exam Vitals/I&O's: Vital Signs Temp Pulse Resp BP Pulse Ox 98.5 F 80 14 133/86 H 99 08/13/20 08:30 08/13/20 08:30 08/13/20 08:30 08/13/20 08:30 08/12/20 15:45 Oxygen Delivery Method Room Air Weight: 206 lb 4 oz Body Mass Index (BMI) 37.7 Intake and Output for Last 24 Hours 08/11/20 08/12/20 08/13/20 23:59 23:59 23:59 Intake Total 3082.37 / 3082.37 / Output Total 600 / 600 1400 / 1400 Balance 2482.37 / 2482.37 610.88 / 610.88 Laboratory Results 08/12/20 13:55: WBC 25.8 H, RBC 3.35 L, Hgb 9.5 L, Hct 28.8 L, MCV 86.0, MCH 28.4, MCHC 33.0, RDW Std Deviation 45.2 H, RDW Coeff of Lynnette 14.7 H, Plt Count 177, MPV 11.6 08/13/20 03:58: WBC 21.2 H, RBC 3.47 L, Hgb 9.8 L, Hct 29.9 L, MCV 86.2, MCH 28.2, MCHC 32.8, RDW Std Deviation 46.5 H, RDW Coeff of Lynnette 15.0 H, Plt Count 177, MPV 11.3, Immature Gran % (Auto) 0.900, Neut % (Auto) 75.7 H, Lymph % (Auto) 14.9 L, Winston % (Auto) 6.8, Eos % (Auto) 1.4, Baso % (Auto) 0.3, Absolute Neuts (auto) 16.1 H, Absolute Lymphs (auto) 3.17, Nucleated RBC % 0 Current Medications Acetaminophen (Tylenol) 1,000 mg PO Q8H PRN PRN PRN Reason: Pain Score 1-10/10 Last Admin: 08/12/20 02:58 Dose: 1,000 mg Documented by: Bisacodyl (Dulcolax) 10 mg RECTAL UD PRN PRN Reason: If no BM Dibucaine (Dibucaine) 1 applic TOPICAL TID PRN PRN; Protocol PRN Reason: Discomfort Hydrocortisone (Hytone) 1 applic TOPICAL TID PRN PRN; Protocol PRN Reason: Discomfort Ibuprofen (Motrin) 600 mg PO Q6H PRN PRN PRN Reason: Pain Score 1-10/10 Methylergonovine Maleate (Methergine) 0.2 mg IM X1 PRN PRN Reason: Excess bleeding/uterine atony Ondansetron HCl (Zofran) 4 mg IV Q4H PRN PRN PRN Reason: Nausea Senna/Docusate Sodium (Senokot-S, Adriana-Colace) 1 - 2 tablet PO DAILY PRN PRN PRN Reason: Constipation Simethicone (Mylicon) 80 mg PO PCHS PRN PRN Reason: Indigestion/Stomach pain Sodium Chloride () 5 - 15 ml IV UD PRN PRN Reason: SALINE FLUSH Last Admin: 08/12/20 17:18 Dose: 10 ml Documented by: Zolpidem Tartrate (Ambien (Generic)) 5 mg PO QHS PRN PRN PRN Reason: Insomnia Medical Necessity - Tobacco Use Smoking Status: Former smoker Assessment/Plan All Active Problems 38 weeks gestation of (Acute) Gestational hypertension (Acute) Doing well day #1 status post routine spontaneous vaginal delivery. No evidence of chorioamnionitis. Will release to home with routine instructions.
[2020-08-13 14:10] VITALS: BP 114/71; PULSE 84; RESP 16; TEMP 36.5
== END 2020-08-13 16:10 | disposition home or self-care (01) | DRG 807 ==
PROVIDERS: Obstetrics & Gynecology; Admitting Provider Obstetrics & Gynecology; Visit Provider Obstetrics & Gynecology
DX: O13.4 Gestational [pregnancy-induced] hypertension without significant proteinuria, complicating childbirth (principal); Z37.0 Single live birth; Z3A.38 38 weeks gestation of pregnancy; Z87.891 Personal history of nicotine dependence; O70.0 First degree perineal laceration during delivery
CPT/HCPCS: 59025; 59050; 85025; 85027; 86850; 86900; 86901; 87491; 87591; 99218; J7120; A4216; G0378; J2405

== ENCOUNTER → 2021-01-22 | Outpatient (CLI) | payer OTHER, SELFPAY ==
[2021-01-22 17:28] LABS: hCG Titer Quant., Serum 99 mIU/mL (1-3)
== END | disposition home or self-care (01) ==
LOC: LABSPEC 16:08
PROVIDERS: Visit Provider Student in an Organized Health Care Education/Training Program
DX: N91.2 Amenorrhea, unspecified (principal)
CPT/HCPCS: 36415; 84702

== ENCOUNTER → 2021-01-24 11:42 | Outpatient (CLI) | payer OTHER, SELFPAY ==
[2021-01-24 14:28] LABS: hCG Titer Quant., Serum 229 mIU/mL (1-3)
== END ==
PROVIDERS: Visit Provider Student in an Organized Health Care Education/Training Program
DX: N91.2 Amenorrhea, unspecified (principal)
CPT/HCPCS: 36415; 84702

== ENCOUNTER → 2021-02-22 11:34 | Outpatient (CLI) | payer OTHER, SELFPAY ==
[2021-02-22 13:27] LABS: Absolute Lymphocyte Count 2.01 X10^3/uL (0.83-4.51); Absolute Neutrophil Count 6.4 X10^3/uL (2.0-7.7); Basophil# 0.04 X10^3/uL; Basophil% 0.4 % (0-1); Eosinophil# 0.18 X10^3/uL; Eosinophils% 1.9 % (0-5); Hematocrit 39.2 % (37-47); Hemoglobin 12.7 g/dL (12.0-15.0); Lymphocyte # 2.01 X10^3/ul (4.0); Lymphocyte % 21.2 % (19-41); Mean Corp Hgb Conc 32.4 g/dL (32-36); Mean Corpuscular Hgb 28.2 pg (27.0-32.0); Mean Corpuscular Volume 86.9 fL (81-99); Mean Platelet Vol. 12.1 fl (6.2-12.0); Monocyte# 0.85 X10^3/uL; NRBC Flagged by Analyzer 0 % (0-5); Neutrophil # 6.36 X10^3/uL (2.7-7.7); Neutrophil % 67.2 % (47-70); Platelet Count 226 K/mm3 (150-450); RBC Distribution Width CV 13.4 % (11.6-14.6); RBC Distribution Width SD 41.4 fl (35.1-43.9); Red Blood Count 4.51 M/mm3 (4.2-5.4); White Blood Count 9.5 K/mm3 (4.4-11.0)
[2021-02-22 13:41] LABS: Protein, Urine (Random) 14.7 mg/dL (<11.9); Protein:Creat Ratio 54 mg/g CRE (0-200)
[2021-02-22 13:43] LABS: ALB/GLOB Ratio 0.9 RATIO (0.9-2.4); AST(SGOT) 14 U/L (15-37); Alanine Aminotransfer ALT/SGPT 16 U/L (13-56); Albumin, Serum 3.6 g/dL (3.2-5.0); Alkaline Phosphatase 96 U/L (45-117); Anion Gap 5 (5-15); BUN 8 mg/dL (7-18); BUN/Creat Ratio 14.6 RATIO (10-20); Calcium,Total 8.8 mg/dL (8.5-10.1); Chloride 102 mmol/L (98-107); Creatinine, Serum 0.55 mg/dL (0.55-1.02); EST Glomerular Filtration Rate 141 mL/min (>60); Est Glom Filt Rate - Afr Amer 170 mL/min (>60); Globulin 3.8 g/dL (2.2-4.2); Glucose 67 mg/dL (74-106); LDH 190 U/L (84-246); Potassium 3.8 mmol/L (3.5-5.1); Protein, Total 7.4 g/dL (6.4-8.2); Sodium Level 135 mmol/L (136-145)
[2021-02-23 09:36] LABS: HIV - WCH Non-Reactive (Nonreactive); Hepatitis B Surface Antigen Non-Reactive (Nonreactive); Hepatitis C Antibody Non-Reactive (Nonreactive); Rubella IgG Reactive (Nonreactive); Syphilis Antibodies Non-reactive
[2021-02-23 20:07] LABS: Chlamydia By Nucleic Acid AMP Negative (Negative)
[2021-02-23 20:38] LABS: Gonococcus By Nucleic Acid AMP Negative (Negative)
== END ==
PROVIDERS: Visit Provider Student in an Organized Health Care Education/Training Program
DX: Z32.01 Encounter for pregnancy test, result positive (principal); Z11.3 Encounter for screening for infections with a predominantly sexual mode of transmission; I10 Essential (primary) hypertension
CPT/HCPCS: 36415; 80053; 82570; 83615; 84156; 85025; 86703; 86762; 86780; 86803; 87086; 87088; 87340; 87491; 87591

== ENCOUNTER → 2021-04-18 11:12 | Outpatient (CLI) | payer OTHER, SELFPAY ==
[2021-04-18 12:07] LABS: Glucose Challenge Gest 1H 50g 88 mg/dL (70-140)
== END ==
PROVIDERS: Visit Provider Obstetrics & Gynecology
DX: Z34.82 Encounter for supervision of other normal pregnancy, second trimester (principal)
CPT/HCPCS: 36415; 82950

== ENCOUNTER → 2021-07-13 11:22 | Outpatient (CLI) | payer OTHER, SELFPAY ==
[2021-07-13 13:26] LABS: Hematocrit 34.9 % (37-47); Hemoglobin 11.3 g/dL (12.0-15.0); Mean Corp Hgb Conc 32.4 g/dL (32-36); Mean Corpuscular Hgb 28.5 pg (27.0-32.0); Mean Corpuscular Volume 87.9 fL (81-99); Mean Platelet Vol. 11.9 fl (6.2-12.0); Platelet Count 189 K/mm3 (150-450); RBC Distribution Width CV 13.4 % (11.6-14.6); RBC Distribution Width SD 43.5 fl (35.1-43.9); Red Blood Count 3.97 M/mm3 (4.2-5.4); White Blood Count 8.5 K/mm3 (4.4-11.0)
[2021-07-13 13:38] LABS: Glucose Challenge Gest 1H 50g 116 mg/dL (70-140)
== END ==
PROVIDERS: Visit Provider Obstetrics & Gynecology
DX: Z34.83 Encounter for supervision of other normal pregnancy, third trimester (principal)
CPT/HCPCS: 36415; 82950; 85027

== ENCOUNTER → 2021-09-27 | Outpatient (CLI) | payer OTHER, SELFPAY | END | disposition home or self-care (01) | PROVIDERS: Visit Provider Student in an Organized Health Care Education/Training Program | DX: Z03.818 Encounter for observation for suspected exposure to other biological agents ruled out (principal) | CPT/HCPCS: 87635; U0005; U0003 ==

== ENCOUNTER 2021-10-02 07:00 | Inpatient (IN) | payer OTHER, SELFPAY ==
[2021-10-02] VITALS (35 sets, daily range): BP systolic 100–171; BP diastolic 57–107; PULSE 65–141; TEMP 36.1–36.7; O2SAT 97–100; BMI 37.3
[2021-10-02] MEDS: Lactated Ringers 1,000 ML 50 ML IV (07:40)
[2021-10-02 07:54] LABS: Absolute Lymphocyte Count 1.95 X10^3/uL (0.83-4.51); Absolute Neutrophil Count 5.5 X10^3/uL (2.0-7.7); Basophil# 0.02 X10^3/uL; Basophil% 0.2 % (0-1); Eosinophil# 0.09 X10^3/uL; Eosinophils% 1.1 % (0-5); Hematocrit 36.5 % (37-47); Hemoglobin 11.8 g/dL (12.0-15.0); Lymphocyte # 1.95 X10^3/ul (0.83-4.51); Lymphocyte % 23.4 % (19-41); Mean Corp Hgb Conc 32.3 g/dL (32-36); Mean Corpuscular Hgb 28.1 pg (27.0-32.0); Mean Corpuscular Volume 86.9 fL (81-99); Mean Platelet Vol. 11.9 fl (6.2-12.0); Monocyte# 0.68 X10^3/uL; Monocyte% 8.2 % (0-10); NRBC Flagged by Analyzer 0 % (0-5); Neutrophil # 5.52 X10^3/uL (2.7-7.7); Neutrophil % 66.1 % (47-70); Platelet Count 169 K/mm3 (150-450); RBC Distribution Width CV 14.6 % (11.6-14.6); White Blood Count 8.3 K/mm3 (4.4-11.0)
[2021-10-02] MEDS: Oxytocin 30 units/NS 500 ml 30 UNITS/500 ML IV.SOLN IV (07:58)
--- NOTE | 2021-10-02 08:47 | HP.PCM.OB_ITS ---
HPI - General General Date of Admission: 10/02/21 HPI Narrative LIAM TERESA, is a 26 F who presents for scheduled induction of labor at 40 1/7 wga. OB PROBLEM LIST: 's brother has PKU Class I obesity GBS bactiuria Hx of gHTN in first Nausea/Reflux short interval Maternal Data Information NOY Calculator Estimated Delivery Date Method Current WG Current Estimate 10/01/21 Manual 40w 1d PFSH PFSH Medical History (Updated 10/02/21 @ 23:[address] Viktoria Live MD) GERD (gastroesophageal reflux disease) Infertility Migraines Seasonal allergies Home Medications famotidine 20 mg PO DAILY 08/04/20 [History Last Taken 10/01/21 21:00] ferrous sulfate 325 mg PO DAILY 08/04/20 [History Last Taken 10/01/21 21:00] vit,upzh32-rpjs-gqlnv 1 tab PO DAILY 08/04/20 [History Last Taken 10/01/21 21:00] Aspirin, Baby 81 mg PO DAILY 08/10/20 [History Last Taken 10/01/21 21:00] calcium carbonate-vitamin D3 1 ea PO DAILY 08/10/20 [History Last Taken 10/01/21 21:00] cpcjc-qu-9-pqi-lwv-ufzvwla-ast [krill oil] 1 ea PO DAILY 08/10/20 [History Last Taken 10/01/21 21:00] diphenhydramine HCl [Unisom SleepGels] 50 mg PO QHS 10/02/21 [History Last Taken 10/01/21 21:00] Allergy/AdvReac Type Severity Reaction Status Date / Time No Known Allergies Allergy Verified 10/02/21 08:16 Family History Mother Hypertension Father CAD (coronary artery disease) Daughter Seizures Sister Thyroid disorder Surgical History S/P tonsillectomy and adenoidectomy Social History Smoking Status: Former smoker alcohol intake: former History Elective abortions Hx Para 1 Spontaneous abortions Hx # Term Pregnancies Ectopic pregnancies Hx # Pregnancies Multiple births # of living children Past Pregnancies Del. Date Name GA/Weeks Outcome Route Bth Weight Infant Gen Labor Lgth Anesthesia Del Locatn Provider FOB 08/12/20 Adaline 38 live - full term [id number] Female 25 e pidural [facility] Willie Teresa Delivery Date: 08/12/20 IOL for Miri Vergara,Summer NST FHR Rate Baby A Baseline: 160 Variability:: Moderate Accelerations:: 15 x 15 Decelerations:: None NST Reactive:: Yes FHR Category:: Category I Uterine Activity:: 2-02/07 Vital Signs Vital Signs Vital Signs: 10/02/21 08:32 Pulse Rate 82 Blood Pressure 124/71 H BP Systolic 124 BP Diastolic 71 Weight Weight: 94 kg Body Mass Index (BMI) 37.3 Physical Exam Const alert, oriented x3 and no apparent distress HEENT normocephalic Resp normal respiratory effort, normal air movement and clear to auscultation bilaterally Cardio regular rate and regular rhythm GI normal to inspection, nondistended, normoactive bowel sounds, soft to palpation, non-tender and non-distended Inspection: gravid Labs Labs Labs: Blood Type B POSITIVE Antibody Screen NEGATIVE Hct 36.5 % (37-47) L Hgb 11.8 g/dL (12.0-15.0) L Syphilis Total Ab Non-reactive Rubella IgG Antibody Reactive (Nonreactive) Hep Bs Antigen Non-Reactive (Nonreactive) Neisseria gonorrhoeae DNA (GISELA) Negative (Negative) HIV 1&2 Antibody Non-Reactive (Nonreactive) C.trachomatis DNA (PCR) Negative (Negative) Glucose 1 Hr 50 gm 116 mg/dL (70-140) Rhogam given: No Miscellaneous Test ANTEPARTUM FLOW CHART VISIT GE RTC FU F F MO U U DATE WK MD WKS HT PN HR M SS BP ED WT MO GL D EF ST __ ____ ___ __ __ ___ __ __ __ ___ __ __ __ ___ __ 28 Oct 39 CM 6 39 V + + 134/80 sl 212 - - 1 21 Aug 38 SHM 1 38 V + de 134/88 sl 208 tr - 2 30 -4 13 Oct 37 SHM 1 37 V + + 130/76 sl 207 tr - 06 Oct 36 SHM 1 36 V + + 130/78 0 203 tr - 21 Sep 34 SHM 2 34 V + + 116/74 0 201 tr - 08 Sep 32 SHM 2 32 V + + 116/68 0 205 ne ne 24 Jul 30 SHM 2 30 ? + + 120/70 0 203 tr - 13 Jul 28 SHM 2 28 ? + + 124/80 0 203 - - 14 Jun 23 SHM 4 24 ? + + 130/88 0 199 - - 16 May 20 SHM 4 20 + + 132/70 0 197 ne ne April 15 SHM 4 16 on O 130/74 0 194 tr - Mar 12 CM 4 +U 118/72 0 194 ne ne ANTEPARTUM NOTE(S): Sep 27 2021: Sep 20 2021: NST is reactive Sep 12 2021: ultrasound for postion ck today Sep 05 2021: LARC completed Aug 21 2021: Aug 08 2021: No problems Jul 24 2021: see note Jul 13 2021: umbilicus pain Jun 13 2021: feeling well. Glucola given. AM May 16 2021: US today Apr 18 2021: nausea, early glucola Mar 22 2021: Genetic packet given COMPREHENSIVE ANTEPARTUM NOTE(S): Sep 27 2021: Liam reporting increase in vaginal pressure. no leaking fluid, mucousy vaginal discharge -- thinks she lost part of her mucous plug earlier this week followed by a little spotting. Having ctx's, but nothing regular. Good FM. Scheduled for induction 10/02/21. She is not pre registered yet; advised to do so. kbm Sep 27 2021: 39/3w visit. Feeling pressure - CE unchanged. Induction 10/02, COVID swab done today. F/u PP. CM Sep 20 2021: NST reactive, Cat I. Discussed IOL indications, pt desires elective IOL at 39-40wga. Will schedule. Pt understands hernia not indication for section. Sep 20 2021: Liam is really uncomfortable. She relates baby has increased issue with hernia. She is asking if she needs a C/S because of hernia? She has off and on ctx's, feels like she might be in labor today and mvmt is decreased. NST completed with no ctx's noted and active FM. Wants cervix ck today. Reviewed late discomforts and irregular ctx's. Encouraged her to try belly band to support her hernia. LMT Sep 12 2021: Liam is here for visit. Reviewed FM, SROM, and labor. LMT Sep 12 2021: CEPHALIC on US, ANANTH grossly normal. Labor, ROM, FM precautions. Sep 10 2021: H taken to OB. tkg Sep 05 2021: GBS in urine earlier in . NO GBS culture needed today. LARC declined. Interested in tubal if has a C/S. planning vasectomy. Number for Dr Rothman given as he also does vasectomy. LMT Sep 05 2021: Bedside US next visit to confirm position. Preeclampsia, labor, FM precautions reviewed. hx GBS bactiuria, reviewed indications for abx in labor. Referred to Dr. Rothman for vasectomy consultation - pt to call, phone number provided. Pt indicates desire for tubal sterilization if C/S. Reviewed tubal benefits, risks including risk for failure, as well as ectopic . Aug 21 2021: Liam is here with her SO at 34.1 w following call to Triage. Has 15 hour history of central abd pain rated a 5/10. Points to umbilicus area. Pain increases to 7/10 with movement. T.98.3 po. No fever at home she is aware of. Appetite good, no bladder symptoms, bowel function normal w no diarrhea. No one in the family is sick. Baby less active than usual. NST explained and questions answered. NST Aug 08 2021: 6w maternity leave planned with new job. She likes the flexibility and regular daytime hours. Heartburn manageable now. No complaints. Jul 24 2021: Mild nausea and heartburn. Reviewed otc medications to help. PTL, ROM, FM precautions. Jul 13 2021: Liam is here for a PNV at 28 wks. Good FM. No edema present. Pain present in umbilicus when baby moves in certain ways. Has concerns regarding baby's position. 1 hr GTT drawn, pt is B+. MK Jul 13 2021: Recommend maternity support band/belt. PTL, ROM, FM precautions. Discussed movement counts. Plans to close on new house in the next week. Started a new job with regular hours, no longer nights and weekends. Plans to maintain this work schedule . Jun 13 2021: Plans to switch to 8 hour shifts. She will be moving in the next 4 weeks to [place]. Labor analgesia discussed, Plans epidural in labor. Considering vasectomy for contraception - reviewed timing, referral, safety relative to tubal sterilization. Pt considering OCP for hx pms. PTL, ROM, FM precautions. Early 1h GTT wnl. Repeat 1h GTT next visit. May 16 2021: Liam is here for PNV following US. Working less hours has helped with nausea. Taking vit at also works better for her. Having lots of FM. No edema present today. Feeling ligament pain on occ. Urine neg/neg. LSS May 16 2021: Anatomy scan wnl, EFW 65th%, MALE, circ planned. No previa. Discussed FM further. Pt reports nausea, vomiting resolved. Work note provided to return to 12h shifts. Did not have COVID19 vaccination and does not plan to obtained. Reveals here daughter had COVID19 related seizure at 2 months old with associated brain bleed. Adaline reaching milestones appropriately and is followe d by Neurology. Apr 18 2021: Liam is here for visit. She relates she still has bouts of nausea, especially on the days she is working. She also is experiencing lightheaded/dizzy feeling on the days that she works. She feels much better when she is not working. Encouraged adequate hydration, small, frequent meals with added protein as tolerated. She is currently using Phenergan as she did not like the Zofran at al Apr 18 2021: Discussed workplace triggers for nausea. Pt declines phenergan suppository. Work note provided for 8 hour shift with 30 min break time. Early glucola today. Anatomy scan at next visit. Apr 04 2021: TELEHEALTH NOB-- Liam is a 25 yo G 2 P 1 with NOY 11-21 planning a vag del at [facility] w epidural, using Dr Dian Lambert for post disch ped care and to breastfeed. Her , Luis E is a Research Microbiologist and auxiliary officer for [employer]. They wanted their children close in age and are pleased about the pg. 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 Genetic packet given. Discussed diet and need for increase fluid intake. Several small meals rather than lg ones. Having daily N/V. Has emesis only 1-2/day. Afterwards, able to eat and take fluids. Using TUMS and Pepcid as needed. Has started on daily baby aspirin. No other concens. LSS Mar 22 2021: 12/3w. Denies genetic famliy hx. Declines genetic and carrier screening. F/u 4w. CM REVIEW OF SYSTEMS: GENERAL - Denies fever, or chills SKIN - Denies rash, new skin lesions, or change in moles EYES - Denies blurred vision, or change in visual acuity EARS - Denies ear pain, or difficulty hearing NOSE - Denies nasal congestion, discharge, or bleeding MOUTH - Denies sore throat, or difficulty swallowing NECK - Denies pain or swelling RESPIRATORY - Denies shortness of breath, cough, wheezing CARDIOVASCULAR - Denies palpitations, chest pain, orthopnea, PND, peripheral edema, syncope or claudication GASTROINTESTINAL - Denies nausea, vomiting, diarrhea, constipation, Denies abdominal pain, melena and or bright red blood GENITOURINARY - Denies dysuria, frequency of urination, urgency, or hesitancy MUSCULOSKELETAL - Denies joint or muscle pain, or back pain NEUROLOGICAL - Denies localized numbness, weakness, or tingling PSYCHIATRIC - Denies depression, anxiety, substance abuse or suicide attempts ENDOCRINE - Denies heat or cold intolerance, weight loss or gain, increasing thirst HEMATO-IMMUNOLOGIC - Denies easy bruising, bleeding, oral ulcerations or recurrent infections GENETICS SCREENING: Age 35+ years: No Thalassemia: No Neural Tube Defect: No Down Syndrome: No MARIANNA-SACHS: No Sickle Cell Disease: No Hemophilia: No Musc. Dystrophy: No Cystic Fibrosis: No-declines screening Sondheimer Chorea: No Mental Retardation: No Fragile X: No Other genetic: No Other defects: No SABs/still births: No Drugs since LMP: Yes Comments: FOB has brother with PKU, cousin w autism. INFECTION HISTORY: High risk AIDS: No High risk Hepatitis: No Exposed to TB: No Exposed to Herpes: No Rash/viral illness since LMP: No History of STD: No MENSTRUAL HISTORY: *Menses Amount/Duration: 5-7 daysMenses Regularity: irregularFrequency: variableMenarche (Age Onset): 10* PAST SUMMARY: PARITY: 1. Total Pregnancies............ 2 2. Full Term Pregnancies........ 1 3. Premature.................... 0 4. Abortions - Induced.......... 0 5. Abortions - Spontaneous...... 0 6. Ectopics..................... 0 7. Multiple Births.............. 0 8. Living Children.............. 1 PAST #1: Date of :.................. 08/12/20 Gestation Weeks:................ 38 Length of labor(hours):......... 27 Sex:............................ F Weight-lbs:............... 5 Weight-oz:................ 15 Type of Delivery:............... Vag Type of Anesthesia:............. Epidural Place of Delivery:.............. [place] Treatment of Labor?:.... No Comment: PIH PHYSICAL EXAMINATION General Appearence: 26 yo female in no acute distress Vital Signs: AF, VSS Heart: RRR without rubs or gallops Lungs: CTA x 2 Breasts: deferred Abdomen: gravid Pelvis: Cervix: Presentation: cephalic Station: Fetus: Size: AGA Movement: present Heart: present LAB TEST(S) ORDERED SINCE:01/04/21 10/02/2021 TYPE AND SCREEN 10/02/2021 CBC-COMPLETE BLOOD CNT NO DIFF 10/02/2021 CBC W/DIFF, AUTOMATED 09/27/2021 COVID 19, GISELA [facility](RT COLLECT) 07/13/2021 GLUCOSE CHALLENGE GEST 1H 50G 07/13/2021 CBC-COMPLETE BLOOD CNT NO DIFF 04/18/2021 GLUCOSE CHALLENGE GEST 1H 50G 02/24/2021 CULTURE, URINE 02/23/2021 RUBELLA IGG 02/23/2021 L509.8000 02/23/2021 HIV - [facility] 02/23/2021 HEPATITIS C ANTIBODY 02/23/2021 HEPATITIS B SURFACE ANTIGEN 02/23/2021 CHLAMYDIA/GC GISELA APTIMA 02/22/2021 PROTEIN+CREATININE RATIO,URINE 02/22/2021 T AND S-NO CHARGE W/PNP 02/22/2021 LDH 02/22/2021 COMPREHENSIVE METABOLIC PROFIL 02/22/2021 CBC W/DIFF, AUTOMATED 01/24/2021 HCG TITER QUANT., SERUM 01/22/2021 HCG TITER QUANT., SERUM == ==== Order Observation Description Value Ref_Range A* Site == ==== Labor [facility]~[address] [place], [address]~ TYPE AND SCRE AB SCREEN GEL NEGATIVE ML CBC W/DIFF, AUT NOTE AVERY CBC W/DIFF, AUT WBC 8.3 K/mm3 4.4-11.0 ML CBC W/DIFF, AUT RBC 4.20 M/mm3 4.2-5.4 ML CBC W/DIFF, AUT HGB 11.8 g/dL 12.0-15.0 L ML CBC W/DIFF, AUT HCT 36.5 37-47 L ML CBC W/DIFF, AUT MCV 86.9 fL 81-99 ML CBC W/DIFF, AUT MCH 28.1 pg 27.0-32.0 ML CBC W/DIFF, AUT MCHC 32.3 g/dL 32-36 ML CBC W/DIFF, AUT RDW CV 14.6 11.6-14.6 ML CBC W/DIFF, AUT RDW SD 46.0 fl 35.1-43.9 H ML CBC W/DIFF, AUT PLT 169 K/mm3 150-450 ML CBC W/DIFF, AUT MPV 11.9 fl 6.2-12.0 ML CBC W/DIFF, AUT NEUT% 66.1 47-70 ML CBC W/DIFF, AUT LY% 23.4 19-41 ML CBC W/DIFF, AUT MONO% 8.2 0-10 ML CBC W/DIFF, AUT EO% 1.1 0-5 ML CBC W/DIFF, AUT BASO% 0.2 0-1 ML CBC W/DIFF, AUT IG% 1.000 0.0-0.9 H ML IG% - Immature Granulocytes (promyelocytes, myelocytes and metamyelocytes) > 1% indicates that a LEFT SHIFT is Present. CBC W/DIFF, AUT ABSOLUTE NEUT 5.5 X10 3/uL 2.0-7.7 ML CBC W/DIFF, AUT ABSOLUTE LYMPH 1.95 X10 3/uL 0.83-4.51 ML CBC W/DIFF, AUT NUCLEATED RBC 0 0-5 ML CBC-COMPLETE BL NOTE AVERY CBC-COMPLETE BL WBC K/mm3 4.4-11.0 ML DUPLICATE ORDER. CBC-COMPLETE BL RBC M/mm3 4.2-5.4 ML DUPLICATE ORDER. CBC-COMPLETE BL HGB g/dL 12.0-15.0 ML DUPLICATE ORDER. CBC-COMPLETE BL HCT 37-47 ML DUPLICATE ORDER. CBC-COMPLETE BL MCV fL 81-99 ML DUPLICATE ORDER. CBC-COMPLETE BL MCH pg 27.0-32.0 ML DUPLICATE ORDER. CBC-COMPLETE BL MCHC g/dL 32-36 ML DUPLICATE ORDER. CBC-COMPLETE BL RDW CV 11.6-14.6 ML DUPLICATE ORDER. CBC-COMPLETE BL RDW SD fl 35.1-43.9 ML DUPLICATE ORDER. CBC-COMPLETE BL PLT K/mm3 150-450 ML DUPLICATE ORDER. COVID 19, GISELA NOTE AVERY COVID 19, GISELA COVID-19,GISELA Not Detected Not Detect ML Normal Reference Range: Not Detected Method:(RT-PCR) real-time reverse transcriptase PCR [email or web address] Instrument *The Food and Drug Administration (FDA) has issued an Emergency Use Authorization (EAU) for the [email or web address] SARS-CoV-2 Assay for the rapid detection of the virus that causes COVID-19. This test has been validated, but the FDAs independent review of this validation is pending. *Negative results do not preclude infection and should not be used as the sole basis for treatment or patient management. Optimum specimen types and timing for peak viral levels during infections caused by SARS-CoV-2 have not been determined. Collection of multiple specimens from the same patient may be necessary to detect the virus. The possibility of a false negative result should be considered if the patient has clinical presentation or has had recent exposure. GLUCOSE CHALLEN NOTE AVERY GLUCOSE CHALLEN GLU GEST 50G 1H 116 mg/dL 70-140 ML CBC-COMPLETE BL NOTE AVERY CBC-COMPLETE BL WBC 8.5 K/mm3 4.4-11.0 ML CBC-COMPLETE BL RBC 3.97 M/mm3 4.2-5.4 L ML CBC-COMPLETE BL HGB 11.3 g/dL 12.0-15.0 L ML CBC-COMPLETE BL HCT 34.9 37-47 L ML CBC-COMPLETE BL MCV 87.9 fL 81-99 ML CBC-COMPLETE BL MCH 28.5 pg 27.0-32.0 ML CBC-COMPLETE BL MCHC 32.4 g/dL 32-36 ML CBC-COMPLETE BL RDW CV 13.4 11.6-14.6 ML CBC-COMPLETE BL RDW SD 43.5 fl 35.1-43.9 ML CBC-COMPLETE BL PLT 189 K/mm3 150-450 ML CBC-COMPLETE BL MPV 11.9 fl 6.2-12.0 ML GLUCOSE CHALLEN NOTE AVERY GLUCOSE CHALLEN GLU GEST 50G 1H 88 mg/dL 70-140 ML CULTURE, URINE NOTE AVERY CHLAMYDIA/GC NA NOTE AVERY CHLAMYDIA/GC NA CHLAMY,NUC ACID Negative Negative LCI CHLAMYDIA/GC NA GC BY NUC ACID Negative Negative LCI Performed at: = - [facility] [address] [id number] Machine Shop Repair Technician: Brandi Bajwa MD, Phone: [phone] HEPATITIS C ANT NOTE AVERY HEPATITIS C ANT HEPATITIS C AB Non-Reactive Nonreactive ML Non Reactive: < 0.8 Equivocal: >/= 0.8 to < 1.0 Reactive: >/= 1.0 The CDC recommends that a reactive/equivocal HCV antibody result be followed up by the HCV Nucleic Acid Amplification test (014488) HEPATITIS B GONZALO NOTE AVERY HEPATITIS B GONZALO HEP B SURF AG Non-Reactive Nonreactive ML HIV - [facility] NOTE AVERY HIV - [facility] HIV Non-Reactive Nonreactive ML L509.8000 NOTE AVERY L509.8000 SYPHILIS ABS Non-reactive ML RUBELLA IGG NOTE AVERY RUBELLA IGG RUBELLA IGG Reactive Nonreactive ML Antibody Results Interpretation of Immune Status Non Reactive Presumed Non-Immune Equivocal Equivocal Reactive Presumed Immune PN N [facility]~[address] [place], [address]~ T AND AB SCREEN GEL NEGATIVE ML LDH NOTE AVERY LDH LDH 190 U/L 84-246 ML COMPREHENSIVE M NOTE AVERY COMPREHENSIVE M GLU 67 mg/dL 74-106 L ML Please note revised GLUCOSE reference range effective 01/02/2018. COMPREHENSIVE M BUN 8 mg/dL 7-18 ML COMPREHENSIVE M CREAT,SERUM 0.55 mg/dL 0.55-1.02 ML The validity of the calculated GFR GFRAA in patients over 70 years has not been determined. Clinical correlation is essential. [facility] M EST GFR 141 mL/min >60 ML Non- GFR Calc [facility] M EST GFR - AA 170 mL/min >60 ML GFR Calc COMPREHENSIVE M BUN/CRE 14.6 RATIO 10-20 ML COMPREHENSIVE M T PROT 7.4 g/dL 6.4-8.2 ML COMPREHENSIVE M ALB 3.6 g/dL 3.2-5.0 ML [facility] M GLOB 3.8 g/dL 2.2-4.2 ML COMPREHENSIVE M A/G 0.9 RATIO 0.9-2.4 ML COMPREHENSIVE M CA,TOTAL 8.8 mg/dL 8.5-10.1 ML COMPREHENSIVE M AST 14 U/L 15-37 L ML COMPREHENSIVE M ALK P 96 U/L 45-117 ML COMPREHENSIVE M ALT 16 U/L 13-56 ML COMPREHENSIVE M T BILI 0.30 mg/dL 0.20-1.00 ML For patients on eltrombopag therapy, use of Dimension [place] TBIL is not recommended. [facility] M NA 135 mmol/L 136-145 L ML [facility] M POTASSIUM 3.8 mmol/L 3.5-5.1 ML COMPREHENSIVE M CL 102 mmol/L 98-107 ML [facility] M CO2 28.0 mmol/L 21.0-32.0 ML [facility] M GAP 5 5-15 ML PROTEIN+CREATIN NOTE AVERY PROTEIN+CREATIN UR CREAT 272.00 mg/dL NO RANGE EST. ML PROTEIN+CREATIN PROTEIN,UR.RAN. 14.7 mg/dL <11.9 H ML PROTEIN+CREATIN PROT:CRE RATIO 54 mg/g CRE 0-200 ML CBC W/DIFF, AUT NOTE AVERY CBC W/DIFF, AUT WBC 9.5 K/mm3 4.4-11.0 ML CBC W/DIFF, AUT RBC 4.51 M/mm3 4.2-5.4 ML CBC W/DIFF, AUT HGB 12.7 g/dL 12.0-15.0 ML CBC W/DIFF, AUT HCT 39.2 37-47 ML CBC W/DIFF, AUT MCV 86.9 fL 81-99 ML CBC W/DIFF, AUT MCH 28.2 pg 27.0-32.0 ML CBC W/DIFF, AUT MCHC 32.4 g/dL 32-36 ML CBC W/DIFF, AUT RDW CV 13.4 11.6-14.6 ML CBC W/DIFF, AUT RDW SD 41.4 fl 35.1-43.9 ML CBC W/DIFF, AUT PLT 226 K/mm3 150-450 ML CBC W/DIFF, AUT MPV 12.1 fl 6.2-12.0 H ML CBC W/DIFF, AUT NEUT% 67.2 47-70 ML CBC W/DIFF, AUT LY% 21.2 19-41 ML CBC W/DIFF, AUT MONO% 9.0 0-10 ML CBC W/DIFF, AUT EO% 1.9 0-5 ML CBC W/DIFF, AUT BASO% 0.4 0-1 ML CBC W/DIFF, AUT IG% 0.300 0.0-0.9 ML IG% - Immature Granulocytes (promyelocytes, myelocytes and metamyelocytes) > 1% indicates that a LEFT SHIFT is Present. CBC W/DIFF, AUT ABSOLUTE NEUT 6.4 X10 3/uL 2.0-7.7 ML CBC W/DIFF, AUT ABSOLUTE LYMPH 2.01 X10 3/uL 0.83-4.51 ML CBC W/DIFF, AUT NUCLEATED RBC 0 0-5 ML HCG TITER QUANT NOTE AVERY HCG TITER QUANT HCG QUANT. 229 mIU/mL 1-3 H ML hCG levels with Gestational Age Gestational Age hCG mIU/mL (IU/L) 0.2 - 1 week 5 - 50 1-2 weeks 50 - 500 2-3 weeks 100 - 5000 3-4 weeks 500 - 28475 4-5 weeks 1000 - 61695 5-6 weeks 58508 - 100,000 6-8 weeks 12133 - 200,000 2-3 months 00384 - 100,000 HCG TITER QUANT NOTE AVERY HCG TITER QUANT HCG QUANT. 99 mIU/mL 1-3 H ML hCG levels with Gestational Age Gestational Age hCG mIU/mL (IU/L) 0.2 - 1 week 5 - 50 1-2 weeks 50 - 500 2-3 weeks 100 - 5000 3-4 weeks 500 - 13864 4-5 weeks 1000 - 21871 5-6 weeks 05477 - 100,000 6-8 weeks 93166 - 200,000 2-3 months 18133 - 100,000 Assessment & Plan (1) : QUALIFIERS: Weeks of gestation: 40 weeks Qualified Code(s): Z3A.40 - 40 weeks gestation of PLAN: IOL Pitocin PCN for GBS ppx Consents signed
[2021-10-02] MEDS: Penicillin G 3,000,000 Units 50 ML 100 UNITS IV ×2 (13:35→20:54)
[2021-10-02] MEDS: Lactated Ringers 500 ML 999 ML IV ×2 (14:36→21:50)
[2021-10-02] MEDS: fentaNYL-bupivacaine (epidural) 100 ML BAG EPIDURAL ×2 (15:26→19:40)
[2021-10-02] MEDS: Ondansetron 4 MG/2 ML Vial IV ×2 (16:59→20:54)
[2021-10-02] MEDS: Penicillin G 3,000,000 Units 50 ML 50 UNITS IV (17:16)
[2021-10-02] MEDS: Lactated Ringers 1,000 ML 200 ML IV (18:09)
[2021-10-02] MEDS: proCHLORPERazine 10 MG/2 ML Vial IV (21:32)
[2021-10-02] MEDS: Oxytocin 30 units/NS 500 ml 30 UNITS/500 ML IV.SOLN 334 UNITS IV (22:56)
--- NOTE | 2021-10-02 23:30 | EX.PCM.OBRPT ---
Assessment & Plan (1) (spontaneous vaginal delivery): Maternal Data Information NOY Calculator Estimated Delivery Date Method Current WG Current Estimate 10/02/21 Manual 40w 0d Vaginal Delivery Maternal Presentation Maternal Presentation: Elective Induction Type of Induction: Pitocin and Amniotomy Operative Information Date of Procedure: 10/02/21 Pre-Operative Diagnosis: 1. 40 weeks gestation Post-Operative Diagnosis: 1. 40 weeks gestation Surgery / Procedure Performed: Spontaneous Vaginal Delivery Type of Anesthesia: Epidural Drain: Yan to straight drain Estimated Blood Loss: 100 ml Findings Description of Procedure: Patient pushed to deliver a [male] . Infant mouth and nares were bulb suctioned. The was placed on the maternal abdomen and further attended by nursery personnel. The cord was doubly clamped and cut at [1] minutes of life. The placenta delivered spontaneously and appeared intact on inspection. The perineum was intact. Cord gases were obtained. Sponge and needle counts were correct x2. Presentation: Vertex Amniotic Membrane Rupture Type: Artificial Amniotic Fluid Description: Clear Placental Delivery Description: Spontaneous Placenta Disposition: [facility] Cord Vessel Description: 3 Vessels Cord Entanglement: Around neck x 1, loose Nuchal Cord Compression: With compression Cord Gases: ABG and VBG A Gender: Male (1 minute): 7 (5 minute): 9 Delayed Cord Clamping: Yes Post Vaginal Delivery Medications Given After Delivery: IV Pitocin Episiotomy Description: None Laceration: None Complication Complications: None
[2021-10-03] VITALS (16 sets, daily range): BP systolic 118–139; BP diastolic 64–86; PULSE 79–120; RESP 16–18; TEMP 36.2–36.5; O2SAT 99–100
--- NOTE | 2021-10-03 08:50 | PN.OBGYN_ITS ---
Subjective Subjective No issues overnight. Feels well. OOB and ambulating, voiding without difficulty. Denies painfulness. She is breast and bottlefeeding. Objective Data Objective Data Vital Signs: Vital Signs Temp Pulse Resp BP Pulse Ox 97.7 F L 79 18 130/77 H 99 10/03/21 08:13 10/03/21 08:13 10/03/21 08:13 10/03/21 08:13 10/03/21 08:13 Oxygen Delivery Method Room Air Weight: 94 kg Body Mass Index (BMI) 37.3 Intake & Output: Intake and Output for Last 24 Hours 10/01/21 10/02/21 10/03/21 23:59 23:59 23:59 Intake Total 3870.51 / 3870.51 333 / 333 Output Total 3000 / 3000 2300 / 2300 Balance 870.51 / 870.51 -1966 / -1966 Lab / Micro Data Result Diagrams: 10/02/21 07:40 Labs: Laboratory Results - last 24 hr 10/02/21 07:40: Blood Type B POSITIVE, Antibody Screen NEGATIVE Physical Exam Const alert, oriented x3 and no apparent distress HEENT normocephalic Resp normal respiratory effort, normal air movement and clear to auscultation b ilaterally Cardio regular rate and regular rhythm GI normal to inspection, nondistended, normoactive bowel sounds, soft to palpation, non-tender and non-distended Narrative: fundus firm, nontender, lochia moderate Extremity Extremity Narrative: trace b/l LE edema, no calf tenderness Assessment & Plan (1) (spontaneous vaginal delivery): PLAN: PPD#1 doing well. Rh positive Routine care
[2021-10-04 01:05] VITALS: BP 122/67; PULSE 77; RESP 16; TEMP 36.3
[2021-10-04 07:46] VITALS: BP 124/77; PULSE 70
[2021-10-04 07:57] VITALS: BP 124/77; PULSE 75; RESP 16; TEMP 36.3; O2SAT 100
--- NOTE | 2021-10-04 09:07 | PCM.PN.OB ---
Subjective Subjective No overnight complaints. Pain well controlled. Objective Data Objective Data Vital Signs: Vital Signs Temp Pulse Resp BP Pulse Ox 97.4 F L 75 16 124/77 H 100 10/04/21 07:57 10/04/21 07:57 10/04/21 07:57 10/04/21 07:57 10/04/21 07:57 Oxygen Delivery Method Room Air Weight: 207 lb 3.752 oz Body Mass Index (BMI) 37.3 Intake & Output: Intake and Output for Last 24 Hours 10/02/21 10/03/21 10/04/21 23:59 23:59 23:59 Intake Total 3870.51 / 3870.51 333 / 333 Output Total 3000 / 3000 2300 / 2300 Balance 870.51 / 870.51 -1966 / Lab / Micro Data Result Diagrams: 10/02/21 07:40 Physical Exam Const alert, oriented x3, no apparent distress, average body habitus, healthy appearing and well nourished HEENT normocephalic and moist oral mucous membranes Head and Scalp: atraumatic Face and Sinus: normal facial exam Eyes PERRL Neck full ROM Resp normal respiratory effort, no retractions and no use of accessory muscles GI normal to inspection, nondistended, normoactive bowel sounds GI Narrative: Uterus firm and below umbilicus Extremity normal to inspection, full ROM and no clubbing, cyanosis or edema Psych mental status grossly normal, affect normal, speech normal and activity/motor behavior normal Assessment & Plan (1) (spontaneous vaginal delivery): PLAN: day 2. Breast-feeding. Okay to discharge home.
--- NOTE | 2021-10-04 09:08 | DS.PCM_ITS ---
Discharge Summary Date of Admission: 10/02/21 Date of Discharge: 10/04/21 Summary: Patient arrived on 10/02/2021 with spontaneous vaginal delivery same day. Standard recovery. Reducible umbilical hernia noticed, consultation for general surgery evaluation 6 weeks. Discharge home on 10/04/2021 Physical Exam Const alert, oriented x3, no apparent distress, average body habitus, no limitations, healthy appearing and well nourished Eyes PERRL Neck full ROM Resp normal respiratory effort, normal air movement, no retractions and no use of acc essory muscles Psych mental status grossly normal, thought process normal, cooperative, affect normal and speech normal Meaningful Use Info Meaningful Use Diagnoses (Choose all that apply): None applicable Discharge Plan Admission Admit Date/Time: 10/02/21 07:00 Primary Reason for Your Visit: Vaginal delivery Attending Provider: Viktoria Damon Primary Care Provider: Care Physician,Alanna Primary Instructions Additional Instructions / Restrictions: Regular diet. Weightbearing as tolerated. No intercourse for [address] May shower[address] Call if fevers 101, chest pain, shortness of breath. Follow-up telehealth 2 weeks, follow-up 4 to 6 weeks Discharge Orders/Prescriptions Prescriptions: No Action famotidine 20 MG tablet 20 mg PO DAILY RF: 0 ferrous sulfate 325 MG tablet 325 mg PO DAILY RF: 0 vit,rsge05-unfi-jowaw 1 TABLET tablet 1 tab PO DAILY RF: 0 calcium carbonate-vitamin D3 1 EACH tablet 1 ea PO DAILY RF: 0 diugr-vc-8-mnv-fyi-fgiotnl-ast [krill oil] 1 EACH capsule 1 ea PO DAILY RF: 0 Aspirin, Baby 81 mg PO DAILY RF: 0 diphenhydramine HCl [Unisom SleepGels] 50 mg Capsule 50 mg PO QHS RF: 0 Referrals / Follow Up: Care Physician,No Primary [Primary Care Provider] -
--- NOTE | 2021-10-04 10:15 | CASEMGMT ---
Social Work Brief Assessment Labor and Delivery Unit Patient Address: [address] [place], [place] [address] Phone number: [phone] Date of Referral/Notification: 10.03.2021 Time of Referral: 2242 Referred By: Dr. Quintanilla Date of Intervention: 10.04.2021 Time of Intervention: 944 Reason for Referral: Maternal history of anxiety Informant: Medical record and mother of baby (MOB) Glenna Teresa: Father of baby (FOB) Shilo Teresa present in room. History: MOB is a 26 year old female, to the FOB. MOB and FOB now have 2 children together. MOB is G2, P1 to 2 after delivering baby boy Jones Teresa on 10.02.2021. Older child at home, 13 months old, is Yovana Teresa. No reported concerns with care. 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 No reported issues with learning. MOB denies any history of depression, anxiety, or depression. However, did go on to report that after Ruth there was a 3-4 week period where all MOB wanted to do was listen to music, rather than do any other activities that MOB typically enjoyed doing. MOB reports the FOB did comment to MOB at the time, that if things did not improve that maybe MOB needed to go and talk to someone. MOB reports she did not do this, but started to feel better. Reports did have some worries about breast feeding daughter and wanting to ensure the daughter was properly fed. MOB reports family history of anxiety, as well as MOB's sister with history of depression. Did have a short span where alone with MOB and MOB denies any domestic or intimate partner violence with the FOB. Assessment: Met with MOB and FOB, introducing to self and role. MOB initially denied any type of anxiety, but the more MOB talked it appeared there may have been a short period of time where MOB had some PPD or PPA after daughter. Educated to risk factors present for MOB, and reinforced importance of seeking out help and support should symptoms arise and become distressing. MOB reports the FOB is good about seeing things and communicating to MOB about concerns. MOB reports this time will seek support should symptoms of PPD or PPA arise. MOB report to feel good at this time however, and denies any concerns for mood or anxiety instability. MOB reports will have help from FOB through the weekend, and then have access to MOB's mom and [id number] after. MOB's sister reportedly had a baby about a month ago, so MOB has support from the sister as well. MOB denies any concerns with home going and reports to have needed supplies to care for the baby. Note, MOB receptive to SW visit, talkative, good eye contact, and relaxed. Plan: MOB and to home. Provided MOB with information and support resources for PPA and PPA. MOB accdeting of information. No further needs requested or indicated. -JOLLY Serra, SUE *This note was generated with [employer] dictation software. It may contain incorrect words, spelling, and punctuation that were not noted in review of the chart prior to signing*
== END 2021-10-04 10:05 | disposition home or self-care (01) | DRG 807 ==
PROVIDERS: Admitting Provider Obstetrics & Gynecology; Visit Provider Obstetrics & Gynecology
DX: O69.1XX0 Labor and delivery complicated by cord around neck, with compression, not applicable or unspecified (principal); Z37.0 Single live birth; O99.824 Streptococcus B carrier state complicating childbirth; O99.214 Obesity complicating childbirth; E66.9 Obesity, unspecified; Z3A.40 40 weeks gestation of pregnancy; K21.9 Gastro-esophageal reflux disease without esophagitis; K42.9 Umbilical hernia without obstruction or gangrene; Z79.899 Other long term (current) drug therapy; Z79.82 Long term (current) use of aspirin; Z87.891 Personal history of nicotine dependence
CPT/HCPCS: 59025; 59050; 85025; 86850; 86900; 86901; 99218; J7120; G0378; J2405

== ENCOUNTER 2021-11-19 11:41 | Day surgery (SDC) | payer OTHER, SELFPAY ==
[2021-11-19 12:08] VITALS: BP 123/84; PULSE 62; RESP 16; TEMP 36.4; O2SAT 100; BMI 35.4
[2021-11-19] MEDS: Lactated Ringers 1,000 ML 15 ML IV (12:23)
[2021-11-19 12:24] LABS: Internal QC Validated? YES +Cl - CLEAR BKGD; Pregnancy, Urine Negative Negative
[2021-11-19] MEDS: Bupivacaine Mpf 0.5% 30 ML VIAL (14:10)
--- NOTE | 2021-11-19 14:25 | PCM.OPRPT ---
Problems Associated Problem List Diagnoses (1) Umbilical hernia without obstruction and without gangrene: Report of Operation Date of Procedure: 11/19/21 Pre-Operative Diagnosis: Umbilical hernia without incarceration Post-Operative Diagnosis: Same Surgery/Procedure Performed:: Open repair of umbilical hernia with mesh Description of Surgical Findings:: ?Deep umbilicus with fascial defect of 2.5 cm ?Fascial defect preperitoneal fat only Surgeon: Ramsey Chambers machine set up operator paper goods: Avery Farrell Type of Anesthesia: General/Supplemental Anesthesiologist: Gil Yun Estimated Blood Loss (mL): 25 Description of Procedure: After appropriate identification, the patient was brought to the operating room where she was positioned supine on the operating room table. There she underwent induction of general endotracheal anesthetic. Preoperative antibiotic infusion was completed before this induction. The abdomen was then prepped and draped in usual sterile fashion. A formal timeout was conducted to confirm both patient and procedure. A local block was produced with 17 mL of half percent bupivacaine on both sides of the planned incision line and down to the fascia. The procedure was begun with a curvilinear/semilunar infraumbilical incision which was deepened down through the subcutaneous tissue with use of electrocautery. I then bluntly dissected through the patient's subcutaneous layer down to the level of the fascia and bluntly encircled the umbilical stalk. Using cephalad traction against the umbilical stalk this tissue was sharply dissected from the surrounding subcutaneous layer. Once the umbilical stalk was completely freed I then examined the fascia where I identified the fascial defect. This defect measured 2.5 cm in diameter. The fascial edges were cleared both superficially and of the preperitoneal fat contents using blunt dissection and electrocautery. Once this was circumferentially freed, a medium Ventralex (6.4 cm) mesh was placed into the wound. Superiorly a 0 PDS was used to tack the mesh along its reinforcement ring to the underside of the fascia in a transfascial orientation. Then a inferior tacking stitch was made through the fascia and into the anterior surface of the mesh and back to the fascia creating a underlay position of the mesh. The tails of the mesh were then and the mesh was pulled up to the fascial level. Tacking sutures were placed on each side of the defect to incorporate the tails. Lastly the fascial defect was closed with a running 0 PDS stitch. The wound cavity was examined for hemostasis. 3-0 Vicryl was used to approximate some of Quintin's fascia in an effort to close down the space from our dissection. Then the dermal layer was approximated with interrupted 3-0 Vicryl stitches. Lastly a 4-0 Monocryl was used to perform a subcuticular closure of the skin. Dermabond was used to seal the wound. A rolled Telfa gauze was placed in the wound to train down the umbilical stalk. This was secured in place with an OpSite dressing. Complications None Admit VTE Documentation VTE Present on Admission: Yes VTE Mechan Device Prophylaxis: SCD's VTE Pharm Prophylaxis ordered?: No Procedures Digestive 40xxx-49xxx: 21075 Rpr umbil jigna reduc > 5 yr
--- NOTE | 2021-11-19 14:34 | EX.PCM.DISCH ---
Discharge Instructions Diet Discharge Diet: No restrictions Activity Discharge Activity: May Not Drive (No driving while using narcotic pain medication) and May Shower (Pain postoperative day 1) Ice area for (Minutes): 20 Lifting Restrictions: No lifting more than 10 pounds for the first 6 weeks after surgery Dressing / Incision Call your doctor if your incision/area has: Continuous Slow Oozing, Sudden Increased Bleeding, Increased Pain/ Swelling, Increased Redness and Swelling at the incision site Call your doctor if you observe: Fever of 101 or Higher Suture Line Care: Avoid Pulling/Pushing Remove Dressing in: 2 days (Okay to then leave uncovered) Cleanse incision/area with: Soap & Water Follow Up Care Please Follow Up With: Ramsey Chambers MD When: 7 and 10 days postop Test Results: Test results from this visit will be discussed in further detail at your follow-up appointment, if applicable. Discharge Plan Admission Primary Reason for Your Visit: Umbilical hernia repair Attending Provider: Ramsey Chambers Primary Care Provider: Care Physician,Alanna Primary Discharge Orders/Prescriptions Prescriptions: New oxycodone 5 mg capsule 5 mg PO Q6H PRN (Reason: pain) 7 Days Qty: 30 RF: 0 Continued vit,jwpt08-vdfm-okfkx 1 TABLET tablet 1 tab PO DAILY RF: 0 calcium carbonate-vitamin D3 1 EACH tablet 1 ea PO DAILY RF: 0 iksbs-zn-0-alc-nyt-mwolmvk-ast [krill oil] 1 EACH capsule 1 ea PO DAILY RF: 0 Aspirin, Baby 81 mg PO DAILY RF: 0 diphenhydramine HCl [Unisom SleepGels] 50 mg Capsule 50 mg PO QHS RF: 0 sunflower oil-parsley seed oil Capsule 1 cap PO BID RF: 0 amoxicillin-pot clavulanate 875-125 mg tablet RF: 0 Referrals / Follow Up: Care Physician,No Primary [Primary Care Provider] - Disposition Disposition (needs filled in before D/C Order can be placed): Home, Self Care
[2021-11-19 14:38] VITALS: BP 122/74; BP 123/84; PULSE 75; RESP 17; TEMP 36; O2SAT 97
[2021-11-19 14:45] VITALS: BP 119/79; BP 123/84; PULSE 74; RESP 16; O2SAT 99
[2021-11-19 15:00] VITALS: BP 117/71; BP 123/84; PULSE 70; RESP 16; O2SAT 96
[2021-11-19 15:06] VITALS: BP 106/89; BP 123/84; PULSE 65; RESP 16; TEMP 36.1; O2SAT 100
[2021-11-19] MEDS: oxyCODONE 5 MG Tablet PO (15:32)
[2021-11-19 16:27] VITALS: BP 107/62; BP 123/84; PULSE 61; RESP 16; TEMP 36.4; O2SAT 100
--- NOTE | 2021-11-20 10:59 | HP.PCM_ITS ---
History and Physical Date of Admission: 11/19/21 Date of Service: 11/05/21 MR#:[id number]: LIAM JOHNRep #:[id number] Provider:Garcia Dominguez/Sex: 26/F [facility] Vital Signs 11/05/21 12:46 Weight: 190 lb BP 157/90 H Blood Pressure Location Rt brachial Position Sitting Respiration 18 Intake Visit Reasons: Revaluate umbilical hernia due 10/01 Chief Complaint: discuss umbilical hernia Photo Lab Manager Required: No Is patient in pain?: No Allergies No Known Allergies Allergy (Verified 11/05/21 12:47) Medications famotidine 20 mg PO DAILY 08/04/20 [History Confirmed 11/05/21] ferrous sulfate 325 mg PO DAILY 08/04/20 [History Confirmed 11/05/21] vit,bkhu09-mjvf-ujntu 1 tab PO DAILY 08/04/20 [History Confirmed 11/05/21] Aspirin, Baby 81 mg PO DAILY 08/10/20 [History Confirmed 11/05/21] calcium carbonate-vitamin D3 1 ea PO DAILY 08/10/20 [History Confirmed 11/05/21] cbbuy-dp-2-oce-teo-hedcsen-ast [krill oil] 1 ea PO DAILY 08/10/20 [History Confirmed 11/05/21] diphenhydramine HCl [Unisom SleepGels] 50 mg PO QHS 10/02/21 [History Confirmed 11/05/21] PFSH Medical History Engorgement of breast GERD (gastroesophageal reflux disease) Infertility Migraines Seasonal allergies Surgical History S/P tonsillectomy and adenoidectomy Family History Mother Hypertension Father CAD (coronary artery disease) Daughter Seizures Sister Thyroid disorder Social History Smoking Status: Former smoker alcohol intake: former HPI HPI HPI: LIAM JOHN, is a 26 F who presents to the office today for complaint a umbilical hernia. Patient is referred from Dr. Pacheco Live. Patient was seen in initial surgical consultation on 08/28/2021 but was at the time and the decision was made to await delivery of her child before this issue was revisited. She has now delivered her child and is on maternity leave. States up until her delivery she managed to stay on light duty at work. She believes that the hernia may have progressed towards the end of her and she felt it in the first week , but now can no longer feel the hernia and denies any further discomfort from it. She questions whether it may have now disappeared. She confirms that she now has regular GI functions. At this point she is due to return to work on 11/19/2021. Below is recapitulated from initial consultation on 08/28/2021 for convenience: This finding was first noticed by patient 1 week ago as she was waking out of sleep with severe pain. She presented to Dr. Lvie where the hernia was confirmed. Patient is not able to recall how this occurred but does relate that she is 35 weeks and has had more abdominal pains with this than with her last . She states that the episode last week persisted for 2 days and then she had resolution of her pain spontaneously. During this time she had normal bowel movements (1-2 times daily) and had no nausea other than what was related directly to the pain. Patient has a personal history of smoking but stopped 3 years ago since she has been or during this time. Patient has no personal history of recurrent cutaneous infections including staph or blood sugar control difficulties. Pertinent surgical history includes: None?patient's only surgical history was related to adenoids and she denies any anesthetic complications. ROS General General: No weight change, appetite, fatigue, colon cancer, breast cancer or weakness HEENT HEENT: No difficulty swallowing, eye injury, eye surgery, swollen glands or hoarseness Endo Endocrine: No thyroid disease, diabetes mellitus, thyroid cancer, Hair loss, heat intolerance or cold intolerance Skin Skin: No rash or changing moles Breast Breast: No left breast lump, right breast lump, nipple discharge, breast pain, abnormal mammogram, abnormal US or breast enlargement Musc Musculoskeletal: No back problems, arthritis, rheumatoid arthritis, gout or joint pain Cardio Cardiovascular: No murmur, pacemaker, heart disease, atrial fibrillation, high blood pressure, heart attack, heart stent, palpitations, shortness of breat with exertion or chest pain Psych Psychiatric: No depression, anxiety or hearing voices Resp Respiratory: No shortness of breath, No sleep apnea, No cough, No COPD, No asthma, No emphysema and No wheezing Gastro Gastrointestinal: Yes abdominal pain, No nausea or vomiting, No diarrhea, No constipation, No blood in stool, Yes acid reflux, No hemorrhoids, No ulcers, No gallbladder problem and No black,tarry stools Willie Hematologic: No blood thinners, No blood disorders, No bleeding, No anemia and No blood clots Neuro Neurologic: No system reviewed and no additional complaints, except as documented, No as per HPI, No abnormal gait, No abnormal hearing, No abnormal movements, No abnormal speech, No behavioral changes, No burning sensations, No confusion, No convulsions, No disequilibrium, No dizziness, No localized weakness, No frequent falls, No headache(s), No lack of coordination, No loss of vision, No memory loss, No numbness, No other visual disturbances, No radicular pain, No restless legs, No sensory deficit, No syncope, No tingling, No tremor(s), No weakness and No other Exam Const General: cooperative, comfortable, well groomed and not in acute distress Nutritional Appearance: overweight GI Inspection: obesity Palpation: soft, hernia umbilical (Approximately 1.5 cm defect, nonincarcerated) and nontender Assessment and Plan Assessment and Plan (1) Umbilical hernia without obstruction and without gangrene: Status: Acute Comment: This is a 26-year-old female who is currently after delivery of her last child. Both she and her are committed to ensuring this was their last child (patient states that her is due for a vasectomy next week and she is considering addition of a tubal ligation). She is not experiencing any current discomfort or concerns from her hernia. However, she is looking to return to her physically demanding job on 11/19/2021. On exam, her hernia defect is somewhat smaller than my previous exam noted, but still present I recommend either a laparoscopic repair if done in concert with PATIENT FINANCIAL REPRESENTATIVE (as patient has requested this possibility be entertained with a co-op case on her tubal ligatio n) versus an open repair with mesh placement. Plan - Dr. Ramsey Chambers MD: ?Umbilical hernia repair with mesh (likely to be open given patient's recent phone call that she is likely electing not to pursue a tubal ligation).Date of Service: 11/05/21 MR#:[id number]: LIAM [id number] #:[id number] Provider:Garcia Dominguez/Sex: 26/F [facility] Int[facility] Vital Signs 11/05/21 12:46 Weight: 190 lb BP 157/90 H Blood Pressure Location Rt brachial Position Sitting Respiration 18 Intake Visit Reasons: Revaluate umbilical hernia due 10/01 Chief Complaint: discuss umbilical hernia Photo Lab Manager Required: No Is patient in pain?: No Allergies No Known Allergies Allergy (Verified 11/05/21 12:47) Medications famotidine 20 mg PO DAILY 08/04/20 [History Confirmed 11/05/21] ferrous sulfate 325 mg PO DAILY 08/04/20 [History Confirmed 11/05/21] vit,yoid01-yvto-meuzm 1 tab PO DAILY 08/04/20 [History Confirmed 11/05/21] Aspirin, Baby 81 mg PO DAILY 08/10/20 [History Confirmed 11/05/21] calcium carbonate-vitamin D3 1 ea PO DAILY 08/10/20 [History Confirmed 11/05/21] exrfr-bn-5-nwk-tko-axrkktf-ast [krill oil] 1 ea PO DAILY 08/10/20 [History Confirmed 11/05/21] diphenhydramine HCl [Unisom SleepGels] 50 mg PO QHS 10/02/21 [History Confirmed 11/05/21] PFSH Medical History Engorgement of breast GERD (gastroesophageal reflux disease) Infertility Migraines Seasonal allergies Surgical History S/P tonsillectomy and adenoidectomy Family History Mother Hypertension Father CAD (coronary artery disease) Daughter Seizures Sister Thyroid disorder Social History Smoking Status: Former smoker alcohol intake: former Patient was seen and examined in preop. She denies any new health concerns. Postoperative plan of care was reviewed with both her and her at bedside. Plan to proceed with umbilical hernia repair with mesh as previously- scheduled.
== END 2021-11-19 16:35 | disposition home or self-care (01) ==
LOC: SDC 11:42 → AC 11:43
PROVIDERS: Anesthesiology; Referring Provider Surgery; Visit Provider Surgery
PROC: (CPT 49585; principal; 2021-11-19 13:45)
DX: K42.9 Umbilical hernia without obstruction or gangrene (principal); K21.9 Gastro-esophageal reflux disease without esophagitis; G43.909 Migraine, unspecified, not intractable, without status migrainosus; Z79.82 Long term (current) use of aspirin; Z87.891 Personal history of nicotine dependence
CPT/HCPCS: 00750; 49585; 81025; 87635; C1781; C9803; J7120; U0005; J2405; U0003